=== PATIENT | female | born 1960 | race Caucasian/White ===

== ENCOUNTER 2021-06-14 07:09 | Outpatient (REF) | payer BC, SELFPAY ==
[2021-06-14 12:17] LABS: Alanine Aminotransferase 18 U/L (0-31); Anion Gap 11 (12-20); Aspartate Amino Transferase 19 U/L (5-31); Blood Urea Nitrogen 13 mg/dL (9-16); Calcium 9.5 mg/dL (8.4-10.2); Carbon Dioxide 26 mmol/L (22-29); Chloride 107 mmol/L (96-108); Cholesterol 235 mg/dL; Estimated Glomerular Filt Rate > 60; Glucose Fasting 88 mg/dL (60-99); HDL Cholesterol 72 mg/dL; LDL Cholesterol Calculated 131 mg/dl; Potassium 4.1 mmol/L (3.3-5.1); Sodium 140 mmol/L (135-145); Triglycerides 164 mg/dL
[2021-06-14 12:22] LABS: Vitamin D 25-OH Total 39.8 ng/mL (>30)
== END 2021-06-14 07:10 | disposition home or self-care (01) ==
LOC: HO.HMGCLDS 07:09
PROVIDERS: PCP Internal Medicine; Visit Provider Internal Medicine
DX: Z00.00 Encounter for general adult medical examination without abnormal findings (principal); E78.5 Hyperlipidemia, unspecified; I10 Essential (primary) hypertension; Z78.0 Asymptomatic menopausal state
CPT/HCPCS: 36415; 80048; 80061; 82306; 84450; 84460

== ENCOUNTER 2022-01-04 07:06 | Outpatient (REF) | payer BC, SELFPAY ==
[2022-01-04 11:38] LABS: Alanine Aminotransferase 17 U/L (0-31); Aspartate Amino Transferase 21 U/L (5-31); Cholesterol 217 mg/dL; HDL Cholesterol 62 mg/dL; LDL Cholesterol Calculated 132 mg/dl; Triglycerides 119 mg/dL
== END 2022-01-04 07:07 | disposition home or self-care (01) ==
LOC: HO.HMGCLDS 07:06
PROVIDERS: Visit Provider Internal Medicine
DX: E78.5 Hyperlipidemia, unspecified (principal)
CPT/HCPCS: 36415; 80061; 84450; 84460

== ENCOUNTER 2022-03-29 06:20 | Day surgery (SDC) | payer BC, SELFPAY ==
[2022-03-22 14:14] VITALS: BMI 27.3
[2022-03-29 06:47] VITALS: BP 144/72; PULSE 68; RESP 16; TEMP 36.2; O2SAT 99; BMI 26.6
[2022-03-29] MEDS: Lactated Ringers 1,000 ML 100 ML IVCONT (06:50)
--- NOTE | 2022-03-29 07:06 | HO.ANESPROP2 ---
[facility] Active Problems Active Problems: All Active Problems (Updated 06/23/21 @ 16:10 by Tiffani Nieto MD) Dyslipidemia (Acute) Generalized anxiety disorder (Acute) Past Medical History Medical History Dyslipidemia Generalized anxiety disorder Family History Family History (Updated 07/06/21 @ 01:07 by Tiffani Nieto MD) Father Coronary artery disease Mother Breast cancer, Onset Age: 55 Hypothyroidism Family history of problems with anesthesia: No Surgical History Surgical History History of cholecystectomy Hx of colonoscopy S/P trigger finger release History of Problems with Anesthesia: No Social History Social History Patient Tobacco Use Status: Never used Tobacco Use of substances other than those prescribed or required for medical reasons: No Are you DNR?: No Advance Directives: No Advance Directives Information Provided: Yes Patient : No (menopausal) Meds Allergies Allergy/AdvReac Type Severity Reaction Status Date / Time ampicillin Allergy Unknown Rash Verified 03/22/22 14:09 Sulfa (Sulfonamide Allergy Rash Verified 03/29/22 06:33 Antibiotics) Active Medications: Current Medications Sodium Biphosphate/Sodium Phosphate (Sodium Phosphate,[place]-Dibasic 133 Ml Enema) 133 ml PA ONCE PRN PRN Reason: Poor Colonoscopy Prep Results Home Medications Medication Instructions Recorded Confirmed Last Taken Type multivitamin 1 tab PO DAILY 06/23/21 03/22/22 Unknown History Exam Exam Date and Time: March 29, 2022 07 Height,Weight and Vital Signs: Height 5 ft 8 in Weight 79.379 kg Last Vital Signs Temp 97.2 F 03/29/22 06:47 Pulse 68 03/29/22 06:47 Resp 16 03/29/22 06:47 BP 144/72 H 03/29/22 06:47 Pulse Ox 99 03/29/22 06:47 O2 Del Method 03/29/22 06:47 Airway Mallampati Class: I TM Dist: >3cm Assessment and Plan Assessment Anesthesia Assessment: Anesthesia Plan Discussed and Chart Reviewed Final Anesthetic Review Family History of Problems with Anesthesia: No History of Problems with Anesthesia: No NPO: Yes ASA Class: II Final Preanesthetic Review: No Changes in Pt Med Stat, Meds/Allgs Chart Reviewed, Consent Obtained/Reviewed and Anes Risks/Benef Reviewed Patient Risk: Low Procedure Risk: Low Anesthetic Plan Anesthetic Plan: MAC: Disposition: Standard PACU
[2022-03-29 08:23] VITALS: BP 105/60; PULSE 69; RESP 16; TEMP 36.1; O2SAT 100
--- NOTE | 2022-03-29 08:28 | PM.OP ---
Brief Operative Note Date of Service: 03/29/22 Pre-op diagnosis: Screening Post-op diagnosis: other (Diverticulosis) Procedure: Colonoscopy to the cecum and TI Surgeon: Enoch Rosa Anesthesia: MAC Was an Instrument [employer] System used for this Procedure?: No Estimated blood loss (mL): 0 Pathology: none sent Condition: stable Disposition: PACU
[2022-03-29 08:38] VITALS: BP 105/51; PULSE 61; RESP 16; TEMP 36.1; O2SAT 99
--- NOTE | 2022-03-29 16:39 | OP_ITS ---
SURGEON: Enoch Rosa MD INDICATIONS: The patient presents for evaluation of colorectal cancer screening. Full consent was obtained from her for this, including risks of bleeding and perforation. PREOPERATIVE DIAGNOSIS: Colorectal cancer screening. POSTOPERATIVE DIAGNOSIS: PROCEDURE PERFORMED: Colonoscopy to cecum and terminal ileum. ESTIMATED BLOOD LOSS: COMPLICATIONS: ANESTHESIA: Monitored anesthesia care. ASSISTANTS: SPECIMENS: POSTOPERATIVE DIAGNOSES: Colorectal cancer screening, mild sigmoid diverticulosis, small internal hemorrhoids. DESCRIPTION OF PROCEDURE: The patient was placed in the left lateral decubitus position. The digital rectal exam revealed no abnormalities. The Olympus video pediatric colonoscope was entered into the rectum and advanced easily to the cecum. Once in the cecum, I did identify normal-appearing cecal pouch with appendiceal orifice and normal-appearing ileocecal valve. The terminal ileum was cannulated and appeared normal. The scope was withdrawn back in the colon. The entire cecum and ileocecal valve appeared normal. The scope was slowly withdrawn assessing all mucosal surfaces carefully. Preparation was excellent. I did not visualize any sign of polyps, colitis, nor angiodysplasia. There were occasional diverticula in the sigmoid colon. In the rectum, scope was retroflexed visualizing small internal hemorrhoids, but no other pathology. The rectal mucosa appeared normal. The scope was straightened and withdrawn from the patient. She tolerated the procedure well and was returned to recovery area in stable condition. IMPRESSION: 1. Mild sigmoid diverticulosis. 2. Small internal hemorrhoids. PLAN: Given the negative colonoscopy and negative family history, I would recommend a followup colonoscopy in 10 years for further screening. She will otherwise see me on a p.r.n. basis. MD MISTY Soliman/KEYONAL / [phone]
== END 2022-03-29 09:42 | disposition home or self-care (01) ==
PROVIDERS: PCP Internal Medicine; Visit Provider Internal Medicine
PROC: 0DJD8ZZ Inspection of Lower Intestinal Tract, Via Natural or Artificial Opening Endoscopic (ICD-10-PCS; CPT 45378; principal; 2022-03-29 07:30)
DX: Z12.11 Encounter for screening for malignant neoplasm of colon (principal); K57.30 Diverticulosis of large intestine without perforation or abscess without bleeding; K64.8 Other hemorrhoids; E78.00 Pure hypercholesterolemia, unspecified; F41.1 Generalized anxiety disorder; Z79.899 Other long term (current) drug therapy; Z88.2 Allergy status to sulfonamides; Z88.1 Allergy status to other antibiotic agents; Z90.49 Acquired absence of other specified parts of digestive tract
CPT/HCPCS: 45378

== ENCOUNTER 2023-12-04 08:02 | Outpatient (REF) | payer BC, SELFPAY ==
[2023-12-04 12:05] LABS: Alanine Aminotransferase 18 U/L (0-31); Anion Gap 11 (12-20); Aspartate Amino Transferase 17 U/L (5-31); Blood Urea Nitrogen 16 mg/dL (9-16); Calcium 9.4 mg/dL (8.4-10.2); Carbon Dioxide 27 mmol/L (22-29); Chloride 107 mmol/L (96-108); Cholesterol 245 mg/dL (<200); Estimated Glomerular Filt Rate > 60; Glucose Fasting 83 mg/dL (60-99); HDL Cholesterol 55 mg/dL (>40); LDL Cholesterol Calculated 146 mg/dL (<100); Sodium 141 mmol/L (135-145); Triglycerides 220 mg/dL (<150); Vitamin D 25-OH Total 53.2 ng/mL (>30)
== END 2023-12-04 08:03 | disposition home or self-care (01) ==
LOC: HO.HMGCLDS 08:02
PROVIDERS: PCP Internal Medicine; Visit Provider Internal Medicine
DX: Z00.01 Encounter for general adult medical examination with abnormal findings (principal); E78.5 Hyperlipidemia, unspecified; F41.1 Generalized anxiety disorder
CPT/HCPCS: 36415; 80048; 80061; 82306; 84450; 84460

== ENCOUNTER 2023-12-14 08:01 | Outpatient (AMB) | payer BC, SELFPAY ==
--- NOTE | 2023-12-14 08:05 | A.OFFPC_ITS ---
Vital Signs 12/14/23 08:07 Height 5 ft 8 in Weight 186 lb BMI 28.3 BP 138/82 Blood Pressure Location Lt brachial Position Sitting Pulse 88 Pulse Source Pulse Oximeter Pulse Oximetry (%) 99 Oxygen Delivery Method Room Air Intake Visit Reasons: PE Intake Note: * Pt is here today for her PE: Last mammogram 05/08/23, papsmear 01/12/21, colonoscopy 03/29/22 Allergies ampicillin Allergy (Unknown, Verified 12/14/23 08:15) Rash Sulfa (Sulfonamide Antibiotics) Allergy (Verified 12/14/23 08:15) Rash Medication List - Last Reconciled 12/14/23 by Tiffani iNeto MD multivitamin 1 tab PO DAILY sertraline 100 mg PO DAILY simvastatin 20 mg PO BEDTIME Tobacco use date assessed: 12/14/23 Dental Screening Dental Screen Date: 12/14/23 Did you have a dental visit in the last 12 months?: Yes Did you have a dental problem in the last 6 months where you did not have access to dental care?: Yes Was dental information given to patient?: Patient has dentist HPI PE HPI Details 63-year-old lady here today for physical exam. She sees Dr. Perea for her routine Pap and pelvic exam, up-to-date with screening mammogram done April 2023 at [facility], last Pap smear was done in 2020 which showed atrophic vaginal mucosa, and she is up-to-date with her screening colonoscopy done by Dr. Rosa in 2021 which only showed presence of internal hemorrhoids. She currently takes sertraline for her depression which is controlled on medication, and takes simvastatin 20 mg at bedtime for hyperlipidemia Latest fasting lipids however showed elevated triglycerides and LDL cholesterol as compared to last check. She has been compliant with taking her simvastatin but admits to noncompliance with diet or exercise these past few months since she retired Also been complaining of pain in her posterior neck and radiating to shoulders and upper back. This has been present now for the last 4 months. Has no history of any trauma but has been baby-sitting her 1-1/2-year-old grandchild. She has been taking ibuprofen, applying moist heat, tried [id number] icy hot patch and Salonpas patch which affords only temporary relief , she also tried massages which has not been helping. Pain nonradiating to lower back or arms, no accompanying numbness weakness or tingling sensation. PFSH Medical History Dyslipidemia Generalized anxiety disorder Surgical History History of cholecystectomy Hx of colonoscopy S/P trigger finger release Family History Father Coronary artery disease Mother Breast cancer, Onset Age: 55 Hypothyroidism Social History Housing: House Patient Tobacco Use Status: Never used Tobacco e-Cigarette/Vaping Use: Never Used service: No Current occupational status: retired Cognitive needs: No Hearing needs: No Vision needs: Yes Female Reproductive History Menstrual Other: Sees Dr. Perea for her routine Pap and pelvic exam, also orders her mammogram, which she gets at [facility] PHQ-9 Over the last 2 weeks, how often have you been bothered by any of the following problems? 1. Little interest or pleasure in doing things: not at all 2. Feeling down, depressed, or hopeless: not at all 3. Trouble falling or staying asleep, or sleeping too much: more than half the days 4. Feeling tired or having little energy: several days 5. Poor appetite or overeating: several days 6. Feeling bad about yourself - or that you are a failure or have let yourself or your family down: several days 7. Trouble concentrating on things, such as reading the newspaper or watching television: not at all 8. Moving or speaking so slowly that other people could have noticed. Or the opposite - being so fidgety or restless that you have been moving around a lot more than usual: not at all 9. Thoughts that you would be better off or of hurting yourself in some way: not at all Total score: 5 Depression Screening Interpretation: Negative (Depression controlled on sertraline) Depression Screening Done: Yes 49362 - PHQ-9 Billing: Yes Source: Developed by Drs. Enoch Duff, Alena Leonardo, Ar Kilgore and colleagues, with an educational lukas from [employer]. Thrive Questionnaire Date Thrive assessed: 12/14/23 I am a: Patient What is your living situation today?: I have a steady place to live Within the past 12 months, did the food you bought not last and you didn't have the money to get more?: Never true Within the past 12 months, did you worry whether your food would run out before you got money to buy more?: Never true Do you have trouble paying for medicines?: No Do you have trouble getting transportation to medical appointments?: No Do you have trouble paying your heating and electricity bill?: No Do you have trouble taking care of your child, family member or friend?: No Do you have trouble with day-to-day activities such as bathing, preparing meals, shopping, managing finances, etc.?: No Are you currently unemployed and looking for a job?: No Are you interested in more education?: No Please select the resources that you would like help with: None THRIVE Score: 0 AUDIT C Alcohol Use Questionnaire (AUDIT-C) 1. How often do you have a drink containing alcohol?: 2-4 times a month 2. How many drinks containing alcohol do you have on a typical day when you are drinking?: 1 or 2 3. How often do you have six or more drinks on one occasion?: Never Total Score: 2 ARELY-7 AMB Questionnaire ARELY-7 Date ARELY - 7 assessed: 12/14/23 Feeling nervous, anxious, or on edge: 1 = Several days Not being able to stop or control worryin = Not at all Worrying too much about different things: 1 = Several days Trouble relaxin = Several days Being so restless that it is hard to sit still: 0 = Not at all Becoming easily annoyed or irritable: 0 = Not at all Feeling afraid as if something awful might happen: 0 = Not at all Total ARELY-7 score (0-4 normal; 5-9 mild; 10-14 moderate; 15-21 severe): 3 Source: Developed by Drs. Enoch Duff, Alena Leonardo, Ar Kilgore and colleagues, with an educational lukas from [employer]. ARELY-7 Assessment Billing ARELY-7 Assessment Tool: ARELY-7 Assessment 06994 Review of Systems Const Denies fever(s), Denies headache(s) and Denies weakness Eyes Details: up-to-date with her eye exam goes to [facility] Denies change in vision, Denies eye discharge and Denies itchy eyes ENT Denies dizziness, Denies headache(s), Denies nasal congestion, Denies nasal discharge and Denies sore throat Card Denies chest pain, Denies lightheadedness, Denies palpitations and Denies dyspnea Resp Denies chest congestion, Denies cough, Denies dyspnea and Denies wheezing GI Denies abdominal pain, Denies change in bowel habits and Denies heartburn Denies urinary frequency, Denies dysuria and Denies urinary urgency Musc Reports as per HPI Skin/Breast Denies lesions and Denies rash Neuro Denies dizziness, Denies headache(s) and Denies weakness Psych Reports no additional complaints Endo Denies polydipsia, Denies polyuria and Denies palpitations Alvin/Lymph Denies easy bruising Aller/Immun Denies itchy eyes, Denies seasonal rhinorrhea and Denies wheezing Physical exam (Primary Care) Vital Signs: Last Vital Signs Pulse 88 12/14/23 08:07 BP 138/82 12/14/23 08:07 Pulse Ox 99 12/14/23 08:07 Oxygen Delivery Method Room Air 12/14/23 08:07 BMI result Body Mass Index 28.3 Tobacco/Smoking Status: Tobacco use Status Tobacco use date assessed 12/14/23 12/14/23 08:11 Patient Tobacco Use Status Never used Tobacco 12/14/23 08:11 e-Cigarette/Vaping Use Never Used 12/14/23 08:11 Depression Screening Interpretation: Negative (Depression controlled on sertraline) Thrive Assessment: Date of Thrive Assessment Date Thrive assessed 12/04/22 12/14/23 08:11 Const General: cooperative, comfortable and no acute distress Nutritional Appearance: average body habitus Orientation/consciousness: patient oriented x3 HENMT Head: Yes normocephalic and Yes atraumatic Ears: hearing grossly normal bilaterally, external ears normal, TM's normal bilaterally and EAC's normal General nose exam: Normal external nose present, Normal nasal mucous membranes and turbinates present and No nasal discharge present Mouth: Normal oral and palatal mucosa present, oropharynx normal and moist mucous membranes Throat: Yes posterior oropharynx normal Eyes General: appearance normal, both eyes and all related structures Conjunctivae: conjunctivae normal Pupils: Equal, round and reactive pupils present EOM: EOMs intact bilaterally Neck Other: Decreased range of motion on forward flexion, and lateral extension of neck due to pain and stiffness Neck: Yes no lymphadenopathy and Yes supple Chest Other: Patient declined exam states that she has an appointment with her OBGYN who also does breast exams Resp Effort & Inspection: normal respiratory effort and able to speak in complete sentences Auscultation: clear to auscultation bilaterally Cardio Jugular venous distension: no JVD Rate: regular rate Rhythm: regular rhythm Heart sounds: S1 normal heart sound present and S2 normal heart sound present GI Inspection: Yes normal to inspection Palpation (GI): Soft to palpation, nontender and no masses Auscultation: normal bowel sounds General: Yes deferred (has appt with her OB-OLD TESTAMENT PROFESSOR later this year) Back/Spine/Pelvis Other: Tenderness on palpation over paraspinal muscles on cervical area and over bilateral trapezius Thoracic/Lumbar Spine: thoracic and lumbar spine normal to inspection Skin General skin exam: no rashes or lesions noted Neuro General: patient oriented x3, gait normal, tone normal, moves all extremities, Normal light touch and pain sensation and no focal motor deficits Cranial nerves: Yes Equal, round and reactive pupils present Cognition (Neuro): normal cognition Gait exam (Neuro): Normal gait present Motor exam (neuro): 5/5 motor strength present throughout Extrem General: Yes full ROM, Yes no joint enlargement, Yes no pedal edema, Yes no calf tenderness and Yes normal gait Psych Appearance: grossly normal Mental Status: mental status grossly normal Speech and movement: Normal speech and movement present Affect: normal affect Attitude: cooperative Thought process: Normal thought process present Thought content: Normal thought content present Results Reviewed Results Reviewed: Name: Claudia Alatorre Age/Sex: 63/F : 1960 Unit#: [id number] Attend Dr: Tiffani Nieto MD Re12/04/23 Status: DEP [facility] Disch: SPEC : [id number] TOVA: 12/04/23 STATUS: COMP REQ : [id number] RECD: 12/04/23-[address]: Tiffani Nieto MD COMP: 12/04/23-1205 ENTERED: 12/04/23 DEIDRE CRISOSTOMO: ORDERED: Met Prof Fast, AST, ALT, Lipid Panel, Vitamin D 25-OH Test Result Flag Reference Sodium 141 135-145 mmol/L Potassium 4.0 3.3-5.1 mmol/L CL 107 96-108 mmol/L CO2 27 22-29 mmol/L Gap 11 L 12-20 BUN 16 9-16 mg/dL Creat 0.79 0.5-1.4 mg/dL EGFR > 60 NOTE: For -[place] individuals, multiply the result by 1.210. Chronic Kidney Disease: Estimated GFR < 60 mL/min/1.73m2 Severe Kidney Disease: Estimated GFR < 15 mL/min/1.73m2 FBS 83 60-99 mg/dL CA 9.4 8.4-10.2 mg/dL AST (GOT) 17 5-31 U/L ALT (GPT) 18 0-31 U/L Triglyceride 220 H <150 mg/dL Desirable Triglyceride: less than 150 mg/dL Borderline High Triglyceride 150-199 mg/dL High Triglyceride: 200-499 mg/dL Very High Triglyceride: greater than or equal to 5OO mg/dL Cholesterol 245 H <200 mg/dL Desirable Cholesterol: less than 200 mg/dL Borderline High Cholesterol: 200-239 mg/dL High Cholesterol: greater than 239 mg/dL LDL Calculated 146 H <100 mg/dL Desirable LDL: less than 100 mg/dL Near Optimal/Above Optimal LDL: 110-129 mg/dL Borderline High LDL: 130-159 mg/dL High LDL: 160-189 mg/dL Very High LDL: greater than or equal to 190 mg/dL HDL 55 >40 mg/dL Desirable HDL: greater than 40 mg/dL Note: This HDL assay may give artificially low results in patients with liver disease. Vit D 25-OH Tot 53.2 >30 ng/mL Health Based Reference Values* < 20 ng/mL Deficient 20-30 ng/mL Insufficient > 30 ng/mL Sufficient Assessment and Plan Assessment & Plan (1) Annual visit for general adult medical examination with abnormal findings: Code(s): Z00.01 - Encounter for general adult medical examination with abnormal findings Plan: Reviewed recent fasting lab results with patient which showed results within normal limits except for elevated LDL cholesterol and triglyceride. Continue with regular dental visit every 6 months and regular eye exams, at least every 2 years, currently up to. Take adequate calcium in diet and vitamin-D 3 at 2000 IU per cap once a day, in addition to weight-bearing exercises to help maintain good muscle tone and weight control. Instructed to do self-breast exam, and continue with yearly mammogram, ordered by her OBGYN, Dr. Perea. Recommended also to get a bone density scan to be scheduled together with her screening mammogram at [facility]. Patient states that she had 1 several years ago which showed normal bone density. Up-to-date with her cervical cancer screening, sees Dr. Perea and has another appointment scheduled later this month. Has had COVID vaccinations in the past but does not want to get the booster, reminded to get her yearly flu shot, up-to-date with her Shingrix vaccination and Tdap. Recommended also to get RSV vaccine. She is up-to-date with her screening colonoscopy done in [address] Rosa to be repeated again in 10 years. (2) Cervicalgia: Code(s): M54.2 - Cervicalgia Plan: Ordered a cervical spine x-ray, referred for physical therapy. May continue taking ibuprofen and advised to alternate it with Tylenol arthritis 650 mg per tablet may take 1-2 tablets every 12 hours in between ibuprofen. Prescription sent for tizanidine 4 mg per tablet to take 1 tablet at bedtime as needed for painful muscle spasm. Advised to call if no improvement with physical therapy a nd will order an MRI of cervical spine for further evaluation if needed (3) Dyslipidemia: Code(s): E78.5 - Hyperlipidemia, unspecified Plan: Reviewed recent fasting lipid profile with patient with elevated triglycerides and LDL cholesterol on simvastatin 20 mg daily. Will stop simvastatin and switched to rosuvastatin 5 mg per tablet taken once a day . Continue with adherence to low-cholesterol diet and regular exercise, at least 30 minutes 3 to 4 times a week. Advised patient to make healthy food choices, eat more fruits, vegetables, whole grains, wild caught fish and low-fat dairy. Limit amount of meat and fried or fatty food products, as well as processed foods and fast fo ods. Follow-up scheduled with repeat fasting lipid panel in 3 months. Orders: Orders PT Evaluation and Treatment Today M54.2 - Cervicalgia Lipid Panel 02/23/24 E78.5 - Hyperlipidemia, unspecified Alanine Aminotransferase 02/23/24 E78.5 - Hyperlipidemia, unspecified XR cervical spine min 6V Today M54.2 - Cervicalgia Creatine Kinase Total 02/23/24 E78.5 - Hyperlipidemia, unspecified Aspartate Amino Transferase 02/23/24 E78.5 - Hyperlipidemia, unspecified Medications: New rosuvastatin 5 mg PO DAILY 90 tabs 1RF E78.5 - Hyperlipidemia, unspecified tizanidine 4 mg PO BEDTIME PRN 30 tabs 0RF muscle spasticity Discontinued simvastatin Discontinued Reason: Doctor's Order 20 mg PO BEDTIME 90 tabs 3RF Coding Level of Care Code Est Pt Prev Care 40-64y(07684) Diagnoses Annual visit for general adult medical examination with abnormal findings Z00.01 Cervicalgia M54.2 Dyslipidemia E78.5 Additional Codes ARELY-7 Assessment Billing - ARELY-7 Assessment Tool: ARELY-7 Assessment 45822 ([id number])
[2023-12-14 08:07] VITALS: BP 138/82; PULSE 88; O2SAT 99; BMI 28.3
== END 2023-12-14 08:36 | disposition home or self-care (01) ==
PROVIDERS: Visit Provider Internal Medicine
DX: Z00.01 Encounter for general adult medical examination with abnormal findings (principal); M54.2 Cervicalgia; E78.5 Hyperlipidemia, unspecified
CPT/HCPCS: 99213; 99396

== ENCOUNTER 2023-12-14 08:37 | Outpatient (REF) | payer BC, SELFPAY ==
--- NOTE | ~2023-12-14 | XR_ITS ---
EXAMINATION: XR CERVICAL SPINE CLINICAL INFORMATION: Neck pain COMPARISON: None available. TECHNIQUE: 3 views of the cervical spine were obtained. FINDINGS: Prevertebral soft tissues normal. There is mild narrowing at the C6-C7 level. No fracture or destructive lesion. There is mild encroachment on the left C5-C6 neural foramen. XR/XR cervical spine 4V IMPRESSION: Degenerative change noted. No acute findings.
== END 2023-12-14 08:38 | disposition home or self-care (01) ==
LOC: HO.HMGCX 08:37
PROVIDERS: PCP Internal Medicine; Visit Provider Internal Medicine
DX: M54.2 Cervicalgia (principal)
CPT/HCPCS: 72050

== ENCOUNTER 2024-02-29 07:38 | Outpatient (REF) | payer BC, SELFPAY ==
[2024-02-29 11:03] LABS: Alanine Aminotransferase 18 U/L (0-31); Aspartate Amino Transferase 18 U/L (5-31); Cholesterol 224 mg/dL (<200); HDL Cholesterol 55 mg/dL (>40); LDL Cholesterol Calculated 122 mg/dL (<100); Triglycerides 237 mg/dL (<150)
== END 2024-02-29 07:39 | disposition home or self-care (01) ==
LOC: HO.HMGCLDS 07:38
PROVIDERS: PCP Internal Medicine; Visit Provider Internal Medicine
DX: E78.5 Hyperlipidemia, unspecified (principal)
CPT/HCPCS: 36415; 80061; 82550; 84450; 84460

== ENCOUNTER 2024-03-07 08:00 | Outpatient (RCR) | payer BC, SELFPAY ==
--- NOTE | 2024-01-18 09:22 | MHC.PT.EP ---
[facility] [place] Office [place] Office [place] Office [address] Tarik Palma [address] [phone] F: [phone] F: [phone] F: [phone] F: [phone] Physical Therapy Plan of Care Date of Evaluation: 01/18/24 Date of Surgery: Diagnosis: This is a 63 yo female presenting to skilled PT with a script for cervicalgia. Assessment: This is a 63 yo female presenting to skilled PT with a script for cervicalgia. Patient complaining of neck pain presenting for about 3-4 months now, no injury noted. Pain is at the posterior c-spine and radiates to the UT's and upper back. She has been taking ibuprofen, applying moist heat, muscle relaxers, ice, tried [id number] icy hot patch and Salonpas patch with only temporary relief. She also tried massage which has not been helping. She has had VILLEGAS's all her life but now they are everyday (gnosticist area and posterior head). Pain is located central at the occiput and radiates into the UT's (denies radiating symptoms into the UE's however). Pain is described as dull and throbbing but can be sharp at times. Pain is consistent, increases with turning her head to the R. Assessment reveals pain that ranges from up to a 7/10 at the worst. Patient demos decreased L shoulder and cervical ROM, strength of B shoulder's and c-spine, TTP at UT's and impaired posture with forward head and rounded shoulders. Based on functional limitations, impaired QOL and pain tolerance patient is a good candidate for skilled PT 2x/wk for 4wks. Frequency and Duration: The patient will be seen 2x/wk for 4wks Short Term Goals: (in 2 wks) I in HEP Improve cervical ROM by at least 25% Demo proper cervical positioning with progression of UB strengthening exercises without cues from PT Health Technical Writer Goals: (in 4 wks) Report 50% improvement in QOL Tolerate sleeping through the night without waking from pain Improve NDI by 10 points Improve pain to no more than 2/10 at the worst Demo proper lifting and transfering techniques for babysitting Treatment Plan: Modalities to reduce pain, spasms and effusion. Manual therapy to restore motion and function. Therapeutic exercise to improve strength and flexibility. Neuromuscular re-education for posture and balance. Therapeutic activities to return to functional activities of daily living. Electronically signed by: Catina Romero PT Please sign and return to therapist. Thank you for your referral.
--- NOTE | 2024-03-07 09:05 | MHC.PT.DC ---
[facility] [place] Office [place] Office [place] Office [address] Tarik Palma [address] [phone] F: [phone] F: [phone] F: [phone] F: [phone] Physical Therapy Discharge Report Diagnosis: This is a 63 yo female presenting to skilled PT with a script for cervicalgia. Date of Surgery: Date of Evaluation: 01/18/24 Date of Discharge: 03/07/24 Treatments to Date: 8 Cancellations to Date: 0 No Shows to Date: 0 Discharge Status: Patient Elected to Stop Recommend MD Follow-up Discharge Summary: Patient has come to 8 sessions of PT. She continues to have VILLEGAS's, muscle stiffness and limited mobility. She demos similar cervical ROM from eval but shoulder strength has improved. As she has not made much progress I am referring her back to her PCP to talk about ? higher level imaging and additional referrals for ongoing VILLEGAS's and cervical limitations. Electronically signed by: Catina Romero, PT Please sign and return to therapist. Thank you for your referral.
== END 2024-03-07 09:05 | disposition home or self-care (01) ==
LOC: HO.PTCHIC 08:00
PROVIDERS: PCP Internal Medicine; Visit Provider Internal Medicine
DX: M54.2 Cervicalgia (principal)
CPT/HCPCS: 97110; 97140; 97162; 97164

== ENCOUNTER 2024-03-14 09:00 | Outpatient (AMB) | payer BC, SELFPAY ==
--- NOTE | 2024-03-14 08:58 | A.OFFPC_ITS ---
Intake Visit Reasons: f/u labs Andriod [phone] Intake Note: Pt is having a telehealth visit to f/u labs Allergies ampicillin Allergy (Unknown, Verified 03/14/24 09:09) Rash Sulfa (Sulfonamide Antibiotics) Allergy (Verified 03/14/24 09:09) Rash Medication List - Last Reconciled 03/14/24 by Tiffani Nieto MD multivitamin 1 tab PO DAILY rosuvastatin 5 mg PO DAILY sertraline 100 mg PO DAILY Tobacco use date assessed: 12/26/23 Dental Screening Dental Screen Date: 03/14/24 Did you have a dental visit in the last 12 months?: Yes Did you have a dental problem in the last 6 months where you did not have access to dental care?: Yes Was dental information given to patient?: Patient has dentist HPI f/u labs Andriod [phone] HPI Details 63-year-old lady with mixed dyslipidemia , here today for follow-up. She has been taking her rosuvastatin daily 5 mg once a day, but has not been very faithful to a low-cholesterol diet, has been snacking on chips, potato chips and beta good. And has not been exercising regularly. Her fasting lipids however showed improvement in her LDL cholesterol, but triglycerides still remain elevated. Still complaining of posterior neck pain, free of cervical spine showed degenerative changes , not much improvement after 6 weeks of physical therapy. Has been taking ibuprofen and applying ice and heat to affected area which affords only temporary relief. Denies any radiation of pain down arms, no accompanying weakness, no numbness or tingling in extremities noted. Takes sertraline for her generalized anxiety disorder, which has been helping. [facility] Medical History (Updated 03/14/24 @ 09:39 by Tiffani Nieto MD) Mixed dyslipidemia Degenerative disc disease, cervical Generalized anxiety disorder Surgical History S/P trigger finger release Hx of colonoscopy History of cholecystectomy Family History Father Coronary artery disease Mother Breast cancer, Onset Age: 55 Hypothyroidism Social History Housing: House Patient Tobacco Use Status: Never used Tobacco e-Cigarette/Vaping Use: Never Used service: No Current occupational status: retired Cognitive needs: No Hearing needs: No Vision needs: Yes Questionnaire Thrive Questionnaire Date Thrive assessed: 12/14/23 ARELY-7 AMB Questionnaire ARELY-7 Date ARELY - 7 assessed: 03/14/24 Feeling nervous, anxious, or on edge: 1 = Several days Not being able to stop or control worryin = Not at all Worrying too much about different things: 1 = Several days Trouble relaxin = Not at all Being so restless that it is hard to sit still: 0 = Not at all Becoming easily annoyed or irritable: 0 = Not at all Feeling afraid as if something awful might happen: 0 = Not at all Total ARELY-7 score (0-4 normal; 5-9 mild; 10-14 moderate; 15-21 severe): 2 Source: Developed by Drs. Enoch Duff, Alena Leonardo, Ar Kilgore and colleagues, with an educational lukas from [employer]. ARELY-7 Assessment Billing ARELY-7 Assessment Tool: ARELY-7 Assessment 73035 Review of Systems Const Denies headache(s) and Denies weakness Eyes Details: up-to-date with her eye exam goes to [facility] Denies change in vision ENT Denies dizziness, Denies headache(s) and Denies nasal congestion Card Denies chest pain, Denies lightheadedness, Denies palpitations and Denies dyspnea Resp Denies chest congestion, Denies cough, Denies dyspnea and Denies wheezing GI Denies abdominal pain, Denies change in bowel habits and Denies heartburn Denies urinary frequency, Denies dysuria and Denies urinary urgency Musc Reports as per HPI Skin/Breast Denies lesions and Denies rash Neuro Denies dizziness, Denies headache(s) and Denies weakness Psych Reports no additional complaints and Reports as per HPI Endo Denies polydipsia, Denies polyuria and Denies palpitations Alvin/Lymph Denies easy bruising Aller/Immun Denies seasonal rhinorrhea and Denies wheezing Physical exam (Primary Care) Tobacco/Smoking Status: Tobacco use Status Tobacco use date assessed 12/26/23 03/14/24 09:00 Patient Tobacco Use Status Never used Tobacco 03/14/24 09:00 e-Cigarette/Vaping Use Never Used 03/14/24 09:00 Thrive Assessment: Date of Thrive Assessment Date Thrive assessed 12/14/23 03/14/24 09:00 Results Reviewed Results Reviewed: Name: Claudia Alatorre Age/Sex: 63/F : 1960 Unit#: [id number] Attend Dr: Tiffain Nieto MD Re02/29/24 Status: DEP [facility] Disch: SPEC : [id number] TOVA: 02/29/24 STATUS: COMP REQ : [id number] RECD: 02/29/[address]: Tiffani Nieto MD COMP: 02/29/24 ENTERED: 02/29/[address]: ORDERED: AST, ALT, CK Total, Lipid Panel Test Result Flag Reference AST (GOT) 18 5-31 U/L ALT (GPT) 18 0-31 U/L CK Total 91 26-140 U/L Triglyceride 237 H <150 mg/dL Desirable Triglyceride: less than 150 mg/dL Borderline High Triglyceride 150-199 mg/dL High Triglyceride: 200-499 mg/dL Very High Triglyceride: greater than or equal to 5OO mg/dL Cholesterol 224 H <200 mg/dL Desirable Cholesterol: less than 200 mg/dL Borderline High Cholesterol: 200-239 mg/dL High Cholesterol: greater than 239 mg/dL LDL Calculated 122 H <100 mg/dL Desirable LDL: less than 100 mg/dL Near Optimal/Above Optimal LDL: 110-129 mg/dL Borderline High LDL: 130-159 mg/dL High LDL: 160-189 mg/dL Very High LDL: greater than or equal to 190 mg/dL HDL 55 >40 mg/dL Desirable HDL: greater than 40 mg/dL Note: This HDL assay may give artificially low results in patients with liver disease. Assessment and Plan Assessment & Plan (1) Mixed dyslipidemia: Code(s): E78.2 - Mixed hyperlipidemia Plan: Reviewed recent fasting lipid profile with patient with improvement in her LDL cholesterol, but triglycerides remain elevated.. Continue rosuvastatin 5 mg daily, and advised to take cxcs-oxl-ycdowyh [place] 3 fatty acid supplements at least 2 capsules daily , in addition to adherence to low-cholesterol diet and regular exercise, at least 30 minutes 3 to 4 times a week. Advised patient to make healthy food choices, eat more fruits, vegetables, whole grains, wild caught fish and low-fat dairy. Limit amount of meat and fried or fatty food products, as well as processed foods and fast foods. Follow-up scheduled with repeat fasting lipid panel in 4 months after fasting lipids done (2) Degenerative disc disease, cervical: Code(s): M50.30 - Other cervical disc degeneration, unspecified cervical region Plan: Stop ibuprofen, prescription sent for celecoxib 200 mg per capsule to take once a day, may take an extra Tylenol arthritis 650 mg twice a day as needed for pain. Continue doing neck exercises taught at physical therapy. As well as applying alternating ice or heat to affected area. Follow-up in 4 months (3) Generalized anxiety disorder: Code(s): F41.1 - Generalized anxiety disorder Plan: Stable and controlled on sertraline, will continue with same dose 100 mg once a day Orders: Orders Alanine Aminotransferase 06/15/24 E78.5 - Hyperlipidemia, unspecified, Z78.0 - Asymptomatic menopausal state Lipid Panel 06/15/24 E78.5 - Hyperlipidemia, unspecified, Z78.0 - Asymptomatic menopausal state Aspartate Amino Transferase 06/15/24 E78.5 - Hyperlipidemia, unspecified, Z78.0 - Asymptomatic menopausal state Vitamin D 25-OH Total 06/15/24 E78.5 - Hyperlipidemia, unspecified, Z78.0 - Asymptomatic menopausal state Medications: New celecoxib 200 mg PO DAILY PRN 30 caps 3RF neck pain Refilled rosuvastatin 5 mg PO DAILY 90 tabs 1RF E78.5 - Hyperlipidemia, unspecified Coding Level of Care Code Tele Est Pt Level 4 (17142) Complex EM visit Add On G2211 Diagnoses Mixed dyslipidemia E78.2 Degenerative disc disease, cervical M50.30 Generalized anxiety disorder F41.1 Additional Codes ARELY-7 Assessment Billing - ARELY-7 Assessment Tool: ARELY-7 Assessment 64461 ([id number])
== END 2024-03-14 14:29 | disposition home or self-care (01) ==
LOC: HO.HMGC 09:00
PROVIDERS: PCP Internal Medicine; Visit Provider Internal Medicine
DX: E78.2 Mixed hyperlipidemia (principal); M50.30 Other cervical disc degeneration, unspecified cervical region; F41.1 Generalized anxiety disorder
CPT/HCPCS: 99214

== ENCOUNTER 2024-07-01 08:49 | Outpatient (REF) | payer BC, SELFPAY ==
[2024-07-01 10:29] LABS: Alanine Aminotransferase 16 U/L (0-31); Aspartate Amino Transferase 17 U/L (5-31); Cholesterol 233 mg/dL (<200); HDL Cholesterol 55 mg/dL (>40); LDL Cholesterol Calculated 127 mg/dL (<100); Triglycerides 255 mg/dL (<150)
[2024-07-01 10:46] LABS: Vitamin D 25-OH Total 34.1 ng/mL (>30)
== END 2024-07-01 08:50 | disposition home or self-care (01) ==
LOC: HO.HMGCLDS 08:49
PROVIDERS: PCP Internal Medicine; Visit Provider Internal Medicine
DX: E78.5 Hyperlipidemia, unspecified (principal); Z78.0 Asymptomatic menopausal state
CPT/HCPCS: 36415; 80061; 82306; 84450; 84460

== ENCOUNTER 2024-07-18 08:52 | Outpatient (AMB) | payer BC, SELFPAY ==
--- NOTE | 2024-07-18 08:50 | A.OFFPC_ITS ---
Intake Visit Reasons: Med Review Follow Up Intake Note: Pt is having a telehealth visit for her lipids results Allergies ampicillin Allergy (Unknown, Verified 07/18/24 09:19) Rash Sulfa (Sulfonamide Antibiotics) Allergy (Verified 07/18/24 09:19) Rash Medication List - Last Reconciled 07/18/24 by Tiffani Nieto MD multivitamin 1 tab PO DAILY rosuvastatin 5 mg PO DAILY sertraline 100 mg PO DAILY Tobacco use date assessed: 07/18/24 Dental Screening Dental Screen Date: 07/18/24 Did you have a dental visit in the last 12 months?: Yes Did you have a dental problem in the last 6 months where you did not have access to dental care?: Yes Was dental information given to patient?: Patient has dentist HPI Med Review Follow Up HPI Details 63-year-old lady with mixed dyslipidemia , here today for a telehealth follow-up visit. She has been adhering to a low-cholesterol diet has been exercising regularly, and taking her rosuvastatin 5 mg once a day. Recent fasting labs showed LDL cholesterol at goal but still with elevated triglycerides . [facility] Medical History Mixed dyslipidemia Degenerative disc disease, cervical Generalized anxiety disorder Surgical History S/P trigger finger release Hx of colonoscopy History of cholecystectomy Family History Father Coronary artery disease Mother Breast cancer, Onset Age: 55 Hypothyroidism Social History Housing: House Patient Tobacco Use Status: Never used Tobacco e-Cigarette/Vaping Use: Never Used service: No Current occupational status: retired Cognitive needs: No Hearing needs: No Vision needs: Yes Questionnaire Thrive Questionnaire Date Thrive assessed: 12/14/23 ARELY-7 AMB Questionnaire ARELY-7 Date ARELY - 7 assessed: 03/14/24 Source: Developed by Drs. Enoch Duff, Alena Leonardo, Ar Kilgore and colleagues, with an educational lukas from [employer]. Review of Systems Const Denies headache(s) and Denies weakness Eyes Denies change in vision ENT Denies dizziness, Denies headache(s) and Denies nasal congestion Card Denies chest pain, Denies lightheadedness, Denies palpitations and Denies dyspnea Resp Denies chest congestion, Denies cough, Denies dyspnea and Denies wheezing GI Denies abdominal pain, Denies change in bowel habits and Denies heartburn Denies urinary frequency, Denies dysuria and Denies urinary urgency Musc Reports as per HPI Skin/Breast Denies lesions and Denies rash Neuro Denies dizziness, Denies headache(s) and Denies weakness Psych Reports no additional complaints Endo Denies polydipsia, Denies polyuria and Denies palpitations Aller/Immun Denies seasonal rhinorrhea and Denies wheezing Physical exam (Primary Care) Tobacco/Smoking Status: Tobacco use Status Tobacco use date assessed 07/18/24 07/18/24 08:51 Patient Tobacco Use Status Never used Tobacco 07/18/24 08:51 e-Cigarette/Vaping Use Never Used 07/18/24 08:51 Thrive Assessment: Date of Thrive Assessment Date Thrive assessed 12/14/23 07/18/24 08:51 Telehealth Telehealth Telehealth Platform: [facility] Location of provider rendering services: practice address Location of patient: address on file Patient Identification confirmed using: Name, : Yes Telehealth method: video Patient verbally consented to treatment: Yes Patient verbally consented to billing insurance company: Yes Patient informed of any privacy concerns related to visit: Yes Minutes spent on Phone/Video with Pt.: 15 Results Reviewed Results Reviewed: Name: Claudia Alatorre Age/Sex: 63/F : 1960 Unit#: [id number] Attend Dr: Tiffani Nieto MD Re07/01/24 Status: DEP [facility]: SPEC : [id number] TOVA: 07/01/24 STATUS: COMP REQ : [id number] RECD: 07/01/[address]: Tiffani Nieto MD COMP: 07/01/24 ENTERED: 07/01/[address]: ORDERED: AST, ALT, Lipid Panel, Vitamin D 25-OH Test Result Flag Reference AST (GOT) 17 5-31 U/L ALT (GPT) 16 0-31 U/L Triglyceride 255 H <150 mg/dL Desirable Triglyceride: less than 150 mg/dL Borderline High Triglyceride 150-199 mg/dL High Triglyceride: 200-499 mg/dL Very High Triglyceride: greater than or equal to 5OO mg/dL Cholesterol 233 H <200 mg/dL Desirable Cholesterol: less than 200 mg/dL Borderline High Cholesterol: 200-239 mg/dL High Cholesterol: greater than 239 mg/dL LDL Calculated 127 H <100 mg/dL Desirable LDL: less than 100 mg/dL Near Optimal/Above Optimal LDL: 110-129 mg/dL Borderline High LDL: 130-159 mg/dL High LDL: 160-189 mg/dL Very High LDL: greater than or equal to 190 mg/dL HDL 55 >40 mg/dL Desirable HDL: greater than 40 mg/dL Note: This HDL assay may give artificially low results in patients with liver disease. Vit D 25-OH Tot 34.1 >30 ng/mL Health Based Reference Values* < 20 ng/mL Deficient 20-30 ng/mL Insufficient > 30 ng/mL Sufficient Coding Level of Care Code Est Pt Level 3 (63476) Complex EM visit Add On G2211 Diagnoses Mixed dyslipidemia E78.2 Assessment & Plan Assessment & Plan (1) Mixed dyslipidemia: Code(s): E78.2 - Mixed hyperlipidemia Category: Medical Plan: Discuss recent fasting lipid results with patient, will continue on rosuvastatin 5 mg daily, added Lovaza 2 capsules twice a day. Continue with adherence to healthy eating habits and regular exercise. Will repeat another fasting lipid panel in 12/2024 Orders: Orders Alanine Aminotransferase 12/23/24 E78.2 - Mixed hyperlipidemia, Z13.1 - Encounter for screening for diabetes mellitus, Z78.0 - Asymptomatic menopausal state Vitamin D 25-OH Total 12/23/24 E78.2 - Mixed hyperlipidemia, Z13.1 - Encounter for screening for diabetes mellitus, Z78.0 - Asymptomatic menopausal state Lipid Panel 12/23/24 E78.2 - Mixed hyperlipidemia, Z13.1 - Encounter for screening for diabetes mellitus, Z78.0 - Asymptomatic menopausal state Aspartate Amino Transferase 12/23/24 E78.2 - Mixed hyperlipidemia, Z13.1 - Encounter for screening for diabetes mellitus, Z78.0 - Asymptomatic menopausal state Glucose Fasting 12/23/24 E78.2 - Mixed hyperlipidemia, Z13.1 - Encounter for screening for diabetes mellitus, Z78.0 - Asymptomatic menopausal state Medications: New omega-3 acid ethyl esters (Lovaza) 2 caps PO BID 120 caps 5RF 30 days
== END 2024-07-18 11:20 | disposition home or self-care (01) ==
PROVIDERS: PCP Internal Medicine; Visit Provider Internal Medicine
DX: E78.2 Mixed hyperlipidemia (principal)

== ENCOUNTER → 2024-07-18 08:52 | Outpatient (BNVA) | payer BC, SELFPAY | PROVIDERS: PCP Internal Medicine; Visit Provider Internal Medicine ==

== ENCOUNTER 2024-11-10 09:04 | Outpatient (AMB) | payer MEDICARE, BC, SELFPAY ==
--- OUTSIDE RECORDS SUMMARY | 2024-11-10 09:07 | XMS_ITS | Patient Health Record ---
Author Organization [facility] Address [address] [place] [address] Care Team Providers Care Application Defense Manager Name Role Phone Gerson MURPHY, Tiffani Primary Care Provider Enoch Betancur Unavailable [phone] ALLERGIES Allergen (clinical drug ingredient) Drug/Non Drug Allergy documented on EMR Reaction Allergy Type Onset Date Status Penicillin Unknown Drug Allergy Active Substance with sulfonamide structure and antibacterial mechanism of action (substance) Sulfa Antibiotics Unknown Drug Allergy Active REASON FOR REFERRAL No Information MEDICATIONS Medication SIG (Take, Route, Fr equency, Duration) Notes Start Date End Date Status One Daily - 1 tablet Orally Once a day for 30 day(s) Active Simvastatin 20 MG 1 tablet in the even ing Orally Once a day for 30 day(s) Active Sertraline HCl 100 MG 1 tablet Orally On ce a day for 30 day(s) Active IMMUNIZATIONS Vaccine Route Administration Date Status Comme nts Influenza Unknown 07/13/2021 Administered SOCIAL HISTORY Tobacco Use: Social History Observation Description Date Details (start date - stop date) Never Smoker NA - NA Sex Assigned At : Social History Observation Description Sex Assigned At Unknown Tobacco Use/Smoking Question Answer Notes Patient is a nonsmoker Alcohol Screen Question Answer Notes Did you have a drink contain ing alcohol in the past year? Yes How often did you have a dri nk containing alcohol in the past year? Monthly or less (1 point) How many drinks did you have on a typical day when you were drinking in the past year? 1 or 2 drinks (0 point) How often did you have 6 or more drinks on one occasion in the past year? Never (0 point) Points 1 Interpretation Negative PROBLEMS Problem Type ICD Code Onset Dates Problem Status W/U Status Risk SNOMED Code Notes Problem Encounter for screening for malignant neoplasm of colon (Z12.11) Active confirmed 769732318 Problem Preprocedural examination (Z01.818) Active confirmed [id number] Problem Diverticulosis of colon (K57.30) Active confirmed Diverticulosi s of colon (424074731) PLAN OF TREATMENT Future Test Test Name Order Date COLONOSCOPY 12/28/2021 Insurance Providers Payer Name Payer Address Payer Phone Subscriber Number Group Number Insured Name Patient Relationship to Insured Coverage Start Date Coverage End Date [facility] [address] [place] [address] [phone] [id number] EMILY ALEXANDRE Self - patient is the insured MEDICAL (GENERAL) HISTORY Medical History History ICD Code High cholesterol Mild anxiety/depression Negative colonoscopy in 2009 Denies LA,DM,CVA,Lung disease,renal dise ase Surgical History Surgery Date(Month/Year) CCY 2005
--- OUTSIDE RECORDS SUMMARY | 2024-11-10 09:07 | XMS_ITS ---
Author Organization [employer] [facility] Address [address] [place] [address] Care Team Providers Care Wrapper Off Name Role Phone LISETTE MURPHY, RYANN Primary Care Provider Lindy Hong Unavailable [phone] Allergies Allergen (clinical drug ingredient) Drug/Non Drug Allergy documented on EMR Reaction Allergy Type Onset Date Status Penicillin Skin Rash/Itching Drug Allergy Active Substance with sulfonamide structure and antibacterial mechanism of action (substance) Sulfa Antibiotics Skin Rash/Itching Drug Allergy Active Results Component Value Reference Range Notes Urinalysis Reviewed date:02/07/2024 09:43:52 AM Interpretation: Performing Lab: Notes/Report: PH 6.0 PROTEIN NEG GLUCOSE NEG BLOOD NEG [id number] IGP No Culture 30 Plus Reviewed date:02/12/2024 04:14:18 PM Interpretation: Performing Lab:[facility] [place], [facility] [address], [address], [place], Phone - [phone], Director - [facility] Notes/Report: Clinical Information:[id number] Dates / Results....01/12/21 NIL, NEGHPV No. of containers..01 ThinPrep Vial DIAGNOSIS: NEGATIVE FOR INTRAEPITHELIAL LESION OR MALIGNANCY. CELLULAR CHANGES ASSOCIATED WITH ATROPHY ARE PRESENT. Specimen adequacy: Satisfactory for evaluation. Endocervical component may not be distinguished in cases of atrophy. Clinician provided ICD10: Z0 1.419 Performed by: Ivy self, Flute Polisher (ASCP) . . Note: The Pap smear is a screening test designed to aid in the detection of premalignant and malignant conditions of the uterine cervix. It is not a diagnostic procedure and should not be used as the sole means of detecting cervical cancer. Both false-positive and false-negative reports do occur. . Test Methodology: This liquid based ThinPrep(R) pap test was screened with the use of an image guided system. HPV Aptima Negative Negative This nucleic acid amplification test detects fourteen high-risk HPV types (16,18,31,33,35,39,45,51,52,56,58 ,59,66,68) without differentiation. HPV Genotype Reflex Criteria not met, HPV Genotype not performed. PDF Report Reviewed date:02/12/2024 04:13:56 PM Interpretation: Performing Lab:[facility] [place], [address], [address], [place], Phone - [phone], Director - [facility] Notes/Report: Clinical Information:[id number] Dates / Results....01/12/21 NIL, NEGHPV No. of containers..01 ThinPrep Vial REASON FOR VISIT Annual HOG OPERATOR Physical, Annual HOG OPERATOR Physical 60-85+ Medications Medication SIG (Take, Route, Frequency, Duration) Notes Start Date End Date Status Simvastatin 20 MG TAKE 1 TABLET BY FANY TH EVERY DAY IN THE EVENING Oral for 90 Active Multi-Vitamin - 1 tablet Orally Once a day for 30 day(s) With Iron Active Sertraline HCl 100 MG 1 tablet Orally Once a day Active Social History Tobacco Use: Social History Observation Description Date Details (start date - stop date) Never Smoker NA - NA Tobacco Use/Smoking Question Answer Notes Are you a nonsmoker Alcohol Screen (Audit-C) Question Answer Notes Did you have a drink contain ing alcohol in the past year? Yes How often did you have a dri nk containing alcohol in the past year? Monthly or less (1 point) How many drinks did you have on a typical day when you were drinking in the past year? 1 or 2 drinks (0 point) Points 1 Interpretation Negative Sexual History Question Answer Notes Had sex in the past 12 months (vaginal, oral, or anal)? Yes with Men only Prevention strategies discussed: Other Problems Problem Type SNOMED Code ICD Code Onset Dates Problem Status W/U Status Risk Notes Problem Postmenopausal atrophic vaginitis (60897066) Postmenopausal atrophic vaginitis (N95.2) Active confirmed Vital Signs Temperature 97.7 degrees Fahrenheit 02/07/20 24 Blood pressure systolic 130 mm Hg 02/07/20 24 Blood pressure diastolic 80 mm Hg 024 Height 68 in 02/07/2024 Weight 185 lbs 02/07/2024 BMI 28.13 kg/m2 02/07/2024 Encounters Encounter Location Date Provider Diagnosis [facility] [address] [place] [address] 02/07/2024 Lindy Perea Encounter for gynecological examination (general) (routine) without abnormal findings Z01.419 ; Encounter for screening mammogram for malignant neoplasm of breast Z12.31 and Postmenopausal atrophic vaginitis N95.2 Assessments Encounter Date Diagnosis (ICD Code) Assessment Notes Treatment Notes Treatment Clinical Notes Section Notes 02/07/2024 Encounter for gynecological examination (general) (routine) without abnormal findings (ICD-10 - Z01.419) PAP TEST WITH HPV TYPING WAS OBTAINED. 02/07/2024 Encounter for screening mammogram for malignant neoplasm of breast (ICD-10 - Z12.31) REGULAR MAMMOGRAMS AND SBE'S WERE RECOMMENDED. 02/07/2024 Postmenopausal atrophic vaginitis (ICD-10 - N95.2) DISCUSSED FINDINGS, DX AND TX OPTIONS. PAT IS ASYMPTOMATIC. Plan Of Treatment Treatment Notes Assessment Notes Encounter for gynecological examination (general) (routine) without abnormal findings PAP TEST WITH HPV TYPING WAS OBTAINED. Encounter for screening mamm ogram for malignant neoplasm of breast REGULAR MAMMOGRAMS AND SBE'S WERE RECOMMENDED. Postmenopausal atrophic vaginitis DISCUSSED FINDINGS, DX AND TX OPTIONS. PAT IS ASYMPTOMATIC. Pending Test Test Name Order Date MAMMOGRAM, SCREENING 02/07/2024 MM Digital Mammo Screening 02/07/2024 Next Appt Details Follow Up: 1 Year, Reason: Provider Name:Lindy trevino, 02/09/2025 09:00:00 AM, [address], [address], [place], [address], Progress Notes * EMILY HOODDOB:1960 (63 yo F)Acc No.[id number]:02/07/2024 PROGRESS NOTES Patient:?EMILY HOOD Appointment Provider:?Lindy trevino M.D. :1960???Age:63 Y???Sex:Female D ate:02/07/2024 Address:[address] [place] [address], [id number] Pcp:RYANN KNOX MD Subjective: * Chief Complaints: * ??? Annual HOG OPERATOR PhysicalAnnua l HOG OPERATOR Physical 60-85+ * HPI: ???New/Follow-up Patient Consult:? PAT ENTERED MENOPAUSE AT AGE 47.? SHE IS AND DENIES DYSPAREUNIA. HER LAST MAMMOGRAM DONE IN APR 2023 SHOWED BREASTS ARE NOT DENSE AND WAS NORMAL.?? HER LAST PAP TEST IN 2020 WAS NEGATIVE AND HPV NEGATIVE. SHE HAD A COLONOSCOPY DONE IN 2021. SHE HAS NO RISK FACTORS NECESSITATING A BMD AT THIS TIME. PFIZER X 3. ???Annual:? Patient presents for annual exam, ages 60-85, postmenopausal. ?General Health Maintenance:?Current breast complaints:?no breast pain, mass, discharge, or skin changes ?Urinary problems:?patient reports no urinary health problems or bowel health problems ?Calcium intake:?takes adequate calcium via diet and supplementation ?Significant HOG OPERATOR problems:?no significant supervising floorperson symptoms or problems * ROS:?general:?no?chest pain.?no?palpitations.?no?headache.?no?cough.?no?shortness of breath.?no?fever.?no?unexplained weight loss.?no?nausea/vomiting.?no?change in bowel movements.?no blood in stool.?no?genitourinary complaints.?no?skin complaints.? * Medical History:? * [employer] History:?/ Para?2/2.?Sexual activity?currently sexually active.?Last Pap Smear:?01/12/21 NIL, NEG HPV, 05/12/19, NIL, NEG HPV (Elsewhere).?Mammogram:?05/08/23 < 50% density, 05/05/22 < 50% density, 05/03/21 < 50% density, 04/24/20, < 50% density.?LMP and menses?[place].?Colonoscopy?2021, 2009, Booked 02/2022.?Bone Density:?Unknown 2018?.? * OB History:?Total pregnancies?2.?Total living children?2.?NVD?2.? * Surgical History:?Cholecyste ctomy 2006Colonoscopy * Hospitalization/Major Diagno stic Procedure:?2 Vaginal Deliveries See Surgical Hx * Family History:?Mother: dece ased, Breast Cancer.?Father: , Heart Disease.? * Social History:?Tobacco Use:?Tobacco Use/Smoking?Are you a?nonsmoker ???Sexual History:?Sexual History?Had sex in the past 12 months (vaginal, oral, or anal)??Yes ?with?Men only ?Prevention strategies discussed:?Other ?Details of Sexual History?Are you sexually active??Yes ???Drugs/Alcohol:?Drugs?Have you used drugs other than those for medical reasons in the past 12 months??No ?Alcohol Screen (Audit-C)?Did you have a drink containing alcohol in the past year??Yes ?How often did you have a drink containing alcohol in the past year??Monthly or less (1 point) ?How many drinks did you have on a typical day when you were drinking in the past year??1 or 2 drinks (0 point) ?Points?1 ?Interpretation?Negative ???Miscellaneous:?Children: yes, 2. ?Exercise: yes, walking. ?Home smoke detector use: yes. ?Living with: spouse. ?Marital status: . ?Natural support system: yes. 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 ?Sexually active: yes, monogamous relationship. * Medications:?TakingMulti-Vit lemus - Tablet 1 tablet Orally Once a day , Notes to Pharmacist: With IronSertraline HCl 100 MG Tablet 1 tablet Orally Once a day Simvastatin 20 MG Tablet TAKE 1 TABLET BY MOUTH EVERY DAY IN THE EVENING Oral Medication List reviewed and reconciled with the patientTaking Multi-Vitamin - Tablet 1 tablet Orally Once a day , Notes to Pharmacist: With IronTaking Sertraline HCl 100 MG Tablet 1 tablet Orally Once a day Taking Simvastatin 20 MG Tablet TAKE 1 TABLET BY MOUTH EVERY DAY IN THE EVENING Oral Medication List reviewed and reconciled with the patient * Allergies:?Penicillin: Skin Rash/Itching - AllergySulfa Antibiotics: Skin Rash/Itching - Allergyno[Allergies Verified] Objective: * Vitals:?Ht: 68 in, Wt:185lbs , BMI:28.13Index, BP:130/80mm Hg, Temp:97.7F. * Examination: ???General Exam: ?CONSTITUTIONAL:?NECK/THYROID:?RESPIRATORY:?Auscultation: clear to auscultation bilaterally, Respiratory Effort: normal.?CARDIOVASCULAR:?Auscultation: regular rate and rhythm.?BREAST, Right:?BREAST, Left:?GASTROINTESTINAL:?MUSCULOSKELETAL:?SKIN:?NEURO/PSYCH:?Genitourinary: ?EXTERNAL GENITALIA:?VAGINA:?BLADDER:?URETHRA:?CERVIX:?UTERUS:?ADNEXA:?ANUS AND PERINEUM:? Assessment: * Assessment: 1.?Encounter for gynecologic al examination (general) (routine) without abnormal findings - Z01.419?2.?Encounter for screening mammogram for malignant neoplasm of breast - Z12.31?3.?Postmenopausal atrophic vaginitis - N95.2? Plan: * Treatment: ?LAB: Urinalysis (Collection Date & Time - 02/07/2024)* ? Value Reference Range ?PH 6.0 * ?PROTEIN NEG * ?GLUCOSE NEG * ?BLOOD NEG Notes: PAP TEST WITH HPV TYPING WAS OBTAINED.??2.?Encounter for screening mammogram for malignant neoplasm of breast?Imaging: MM Digital Mammo Screening Notes: REGULAR MAMMOGRAMS AND SBE'S WERE RECOMMENDED.??3.?Postmenopausal atrophic vaginitis? Notes: DISCUSSED FINDINGS, DX AND TX OPTIONS. PAT IS ASYMPTOMATIC.?? * Imaging:? * ?Imaging: MAMMOGRAM, SCR EENING * Procedure Codes:? * Preventive Medicine:? ??YOUR PREVENTIVE WELLNESS PLAN:?Osteoporosis prevention?Calcium, D, strength training.?Breast Cancer Screening (Mammogram):?annually.?Cervical Cancer Screening (Pap Smear):?q 3 years with HPV screen.?Colorectal Cancer Screening:?q 10 years.? * Follow Up:?1 Year * Images: Billing Information: * Visit Code:? [id number] Preventive Care Est Pt. Age 65 and over. * Procedure Codes:? * Sign off status: Completed true * Appointment Provider:?Lindy Perea M.D. Date:?02/07/2024 Generated for Sahil herrera/Dominique/eTwanda on:?11/10/2024 09:07 AM EST History and Physical Notes * HPI (History of Present Illness) Category Sub-Category Detail Notes Category Not es New/Follow-up Patient Consult PAT ENTERED MENOPAUSE AT AGE 47. SHE IS AND DENIES DYSPAREUNIA. HER LAST MAMMOGRAM DONE IN APR 2023 SHOWED BREASTS ARE NOT DENSE AND WAS NORMAL. HER LAST PAP TEST IN 2020 WAS NEGATIVE AND HPV NEGATIVE. SHE HAD A COLONOSCOPY DONE IN 2021. SHE HAS NO RISK FACTORS NECESSITATING A BMD AT THIS TIME. PFIZER X 3. Annual General Health Maintenance: Current breast complaints:: no breast pain, mass, discharge, or skin changes Urinary problems:: patient r eleni no urinary health problems or bowel health problems Calcium intake:: takes adequ ate calcium via diet and supplementation Significant HOG OPERATOR problems:: n o significant supervising floorperson symptoms or problems Examination Category Sub-Category Detail Notes Category Not es General Exam CONSTITUTIONAL: General Appearan ce:: alert, in no acute distress, normal, well nourished NECK/THYROID: Thyroid:: normal size and shape Inspection/Palpation:: normal RESPIRATORY: Auscultation: clear to auscultation bilaterally, Respiratory Effort: normal CARDIOVASCULAR: Auscultation: regula r rate and rhythm GASTROINTESTINAL: Hernias:: no hernias present, no inguinal adenopathy Liver and Spleen:: normal Abdomen:: no masses, nontender, nondiste nded MUSCULOSKELETAL: Inspection/Palpation:: no clubb ing, cyanosis, or edema SKIN: Skin:: normal NEURO/PSYCH: Mood/Affect:: normal Orientation:: time , place, person BREAST, Right: Inspection/Palpation :: no discharge, no masses present, no nipple retraction, no skin changes, no skin dimpling, no tenderness, no lymphadenopathy, no axillary mass, no axillary tenderness BREAST, Left: Inspection/Palpation :: no discharge, no masses present, no nipple retraction, no skin changes, no skin dimpling, no tenderness, no lymphadenopathy, no axillary mass, no axillary tenderness Genitourinary EXTERNAL GENITALIA: External Genitalia:: nor mal, no lesions VAGINA: Vagina:: atrophic vaginal tissue , minimal moisture BLADDER: Bladder:: no mass, nontender URETHRA: Urethra:: no erythema or lesions present CERVIX: Cervix:: no lesions, nontender UTERUS: Uterus:: nontender, normal conto ur, normal mobility, normal size ADNEXA: Adnexa:: no masses, no tendernes s ANUS AND PERINEUM: Anus/Perineum:: visually norm al
--- OUTSIDE RECORDS SUMMARY | 2024-11-10 09:07 | XMS_ITS | Patient Health Record ---
Author Organization [facility] Address [address] [place] [address] Care Team Providers Care Cut Off Saw Grader Name Role Phone LISETTE MURPHY, RYANN Primary Care Provider Lindy Hong Unavailable [phone] Allergies Allergen (clinical drug ingredient) Drug/Non Drug Allergy documented on EMR Reaction Allergy Type Onset Date Status Penicillin Skin Rash/Itching Drug Allergy Active Substance with sulfonamide structure and antibacterial mechanism of action (substance) Sulfa Antibiotics Skin Rash/Itching Drug Allergy Active Results Component Value Reference Range Notes Urinalysis Reviewed date:02/07/2024 09:43:52 AM Interpretation: Performing Lab: Notes/Report: PH 6.0 PROTEIN NEG GLUCOSE NEG BLOOD NEG [id number] IGP No Culture 30 Plus Reviewed date:02/12/2024 04:14:18 PM Interpretation: Performing Lab:[facility] [place], [address], [place], Phone - [phone], Director - [facility] Notes/Report: Clinical Information:[id number] Dates / Results....01/12/21 NIL, NEGHPV No. of containers..01 ThinPrep Vial DIAGNOSIS: NEGATIVE FOR INTRAEPITHELIAL LESION OR MALIGNANCY. CELLULAR CHANGES ASSOCIATED WITH ATROPHY ARE PRESENT. Specimen adequacy: Satisfactory for evaluation. Endocervical component may not be distinguished in cases of atrophy. Clinician provided ICD10: Z0 1.419 Performed by: Ivy self, Logging Equipment Operator (ASCP) . . Note: The Pap smear [...] Report Reviewed date:02/12/2024 04:13:56 PM Interpretation: Performing Lab:[facility], [address], [place], Phone - [phone], Director - [facility] Notes/Report: Clinical Information:[id number] Dates / Results....01/12/21 NIL, NEGHPV No. of containers..01 ThinPrep Vial Reason For Referral No Information Medications Medication SIG (Take, Route, Frequency, Duration) [...] Status Risk Notes Problem Postmenopausal atrophic vaginitis (39255711) Postmenopausal atrophic vaginitis (N95.2) Active confirmed Vital Signs Temperature 97.7 degrees Fahrenheit 02/07/2024 Blood pressure diastolic 80 mm Hg 02/07/2024 Height 68 in 02/07/2024 Blood pressure systolic 130 mm Hg 02/07/2024 Weight 185 lbs 02/07/2024 BMI 28.13 kg/m2 02/07/2024 Encounters Encounter Location Date Provider Diagnosis [facility] [address] [place] [address] 02/07/2024 Lindy Perea Encounter for gynecological examination [...] OPTIONS. PAT IS ASYMPTOMATIC. Plan Of Treatment Pending Test Test Name Order Date MAMMOGRAM, SCREENING 01/25/2022 MAMMOGRAM, SCREENING 02/01/2023 MAMMOGRAM, SCREENING 02/07/2024 Urinalysis 01/25/2022 MM Digital Mammo Screening 01/25/2022 MM Digital Mammo Screening 02/01/2023 MM Digital Mammo Screening 02/07/2024 Next Appt Details Provider Name:Lindy trevino, 02/09/2025 09:00:00 AM, [address], [place], [address], Insurance Providers Payer Name Payer Address Payer Phone Subscriber Number Group Number Insured Name Patient Relationship to Insured Coverage Start Date Coverage End Date [employer] [place] [address] [place] [address] [phone] [id number] ALEXANDRE Spouse - patient is the spouse of the insured Medical (General) History Surgical History Surgery Date(Month/Year) Cholecystectomy 2006 Colonoscopy Hospitalization History Reason Date(Month/Year) See Surgical Hx 2 Vaginal Deliveries
--- NOTE | 2024-11-10 09:12 | MHC.PC.OV ---
Vital Signs 11/10/24 09:13 Height 5 ft 8 in Weight 194 lb 4 oz BMI 29.5 BP 132/80 Blood Pressure Location Lt brachial Position Sitting Pulse 76 Pulse Source Pulse Oximeter Temp 97.1 F Temp Source Skin Pulse Oximetry (%) 97 Oxygen Delivery Method Room Air Intake Visit Reasons: Backpain and shoulder Pain Anode Adjuster Required: No Accompanied by: Self / Same As Patient Allergies ampicillin Allergy (Unknown, Verified 11/10/24 09:20) Rash Sulfa (Sulfonamide Antibiotics) Allergy (Verified 11/10/24 09:20) Rash Medication List - Last Reconciled 11/10/24 by VIOLETA Whitfield multivitamin 1 tab PO DAILY omega-3 acid ethyl esters (Lovaza) 2 caps PO BID 30 days rosuvastatin 5 mg PO DAILY sertraline 100 mg PO DAILY Tobacco use date assessed: 11/10/24 Fall risk assessment: 1 Fall in past year Last assessed Fall Risk: 11/10/24 Dental Screening Dental Screen Date: 11/10/24 Did you have a dental visit in the last 12 months?: Yes Did you have a dental problem in the last 6 months where you did not have access to dental care?: No Was dental information given to patient?: Patient has dentist HPI Backpain and shoulder Pain HPI Details The patient is a 59-year-old female with significant past medical history of degenerative disc disease, cervical, The patient is presenting today with status post fallx1 day Patient reports that she fell on ice yesterday and landed on her left shoulder Reports that the pain is a 10/10 movement but is 2/10 without movement The patient has her limited range of motion left shoulder Left shoulder without discoloration or edema Left clavicle is swollen and tender to touch Patient was given an arm sling was sent for a stat left clavicle x-ray Meloxicam 15 mg was ordered as well, discussed with patient that she could use cool compress to decrease the swelling and pain as needed She denies shortness of breath, denies chest pain, denies heart palpitation denies dizziness PFSH Medical History Mixed dyslipidemia Degenerative disc disease, cervical Generalized anxiety disorder Surgical History S/P trigger finger release Hx of colonoscopy History of cholecystectomy Family History Father Coronary artery disease Mother Breast cancer, Onset Age: 55 Hypothyroidism Social History Housing: House Patient Tobacco Use Status: Never used Tobacco e-Cigarette/Vaping Use: Never Used service: No Current occupational status: retired Cognitive needs: No Hearing needs: No Vision needs: Yes Questionnaire PHQ-9 Over the last 2 weeks, how often have you been bothered by any of the following problems? 1. Little interest or pleasure in doing things: not at all 2. Feeling down, depressed, or hopeless: not at all 3. Trouble falling or staying asleep, or sleeping too much: more than half the days 4. Feeling tired or having little energy: several days 5. Poor appetite or overeating: several days 6. Feeling bad about yourself - or that you are a failure or have let yourself or your family down: several days 7. Trouble concentrating on things, such as reading the newspaper or watching television: not at all 8. Moving or speaking so slowly that other people could have noticed. Or the opposite - being so fidgety or restless that you have been moving around a lot more than usual: not at all 9. Thoughts that you would be better off or of hurting yourself in some way: not at all Total score: 5 Depression Screening Interpretation: Negative (Depression controlled on sertraline) Depression Screening Done: Yes 52016 - PHQ-9 Billing: Yes Source: Developed by Drs. Enoch Duff, Alena Leonardo, Ar Kilgore and colleagues, with an educational lukas from [employer]. Thrive Questionnaire Date Thrive assessed: 11/10/24 I am a: Patient What is your living situation today?: I have a steady place to live Within the past 12 months, did the food you bought not last and you didn't have the money to get more?: Never true Within the past 12 months, did you worry whether your food would run out before you got money to buy more?: Never true Do you have trouble paying for medicines?: No Do you have trouble getting transportation to medical appointments?: No Do you have trouble paying your heating and electricity bill?: No Do you have trouble taking care of your child, family member or friend?: No Do you have trouble with day-to-day activities such as bathing, preparing meals, shopping, managing finances, etc.?: No Are you currently unemployed and looking for a job?: No Are you interested in more education?: No Please select the resources that you would like help with: None Currently or been in a relationship where the following occur: No concerns reported THRIVE Score: 0 AUDIT C Alcohol Use Questionnaire (AUDIT-C) 1. How often do you have a drink containing alcohol?: 2-4 times a month 2. How many drinks containing alcohol do you have on a typical day when you are drinking?: 1 or 2 3. How often do you have six or more drinks on one occasion?: Never Total Score: 2 ARELY-7 AMB Questionnaire ARELY-7 Date ARELY - 7 assessed: 11/10/24 Feeling nervous, anxious, or on edge: 0 = Not at all Not being able to stop or control worryin = Not at all Worrying too much about different things: 0 = Not at all Trouble relaxin = Not at all Being so restless that it is hard to sit still: 0 = Not at all Becoming easily annoyed or irritable: 0 = Not at all Feeling afraid as if something awful might happen: 0 = Not at all Total ARELY-7 score (0-4 normal; 5-9 mild; 10-14 moderate; 15-21 severe): 0 Source: Developed by Drs. Enoch Duff, Alena Leonardo, Ar Kilgore and colleagues, with an educational lukas from [employer]. ARELY-7 Assessment Billing ARELY-7 Assessment Tool: ARELY-7 Assessment 62080 Review of Systems Const Details: Denies chills, Denies fatigue, Denies fever(s), Denies headache(s) and Denies weakness HEENT Denies change in vision, Denies dizziness, Denies headache(s), Denies hearing loss, Denies nasal congestion, Denies sinus pain, Denies sinus pressure and Denies sore throat Card Denies chest pain, Denies lightheadedness, Denies dyspnea and Denies other (palpitations) Resp Denies cough, Denies dyspnea and Denies wheezing GI Denies abdominal pain, Denies melena, Denies hematochezia, Denies change in bowel habits, Denies dyspepsia and Denies nausea Denies hematuria and Denies dysuria Musc Denies abnormal gait, Denies myalgias, Denies arthralgias, Denies numbness and Denies tingling Other: See HPI Skin/Breast Denies rash, Denies unusual bruising and Denies wounds Neuro Denies abnormal gait, Denies dizziness, Denies headache(s), Denies memory loss, Denies numbness, Denies Sensory deficit (Neuro), Denies tingling and Denies weakness Psych Denies anxiety, Denies depression and Denies memory loss Endo Denies cold intolerance, Denies fatigue, Denies heat intolerance, Denies polydipsia and Denies polyuria Alvin/Lymph Denies easy bleeding and Denies easy bruising Aller/Immun Denies wheezing Physical exam (Primary Care) Vital Signs: Last Vital Signs Temp 97.1 F 11/10/24 09:13 Pulse 76 11/10/24 09:13 BP 132/80 11/10/24 09:13 Pulse Ox 97 11/10/24 09:13 Oxygen Delivery Method Room Air 11/10/24 09:13 BMI result Body Mass Index 29.5 Tobacco/Smoking Status: Tobacco use Status Tobacco use date assessed 11/10/24 11/10/24 09:16 Patient Tobacco Use Status Never used Tobacco 11/10/24 09:16 e-Cigarette/Vaping Use Never Used 11/10/24 09:16 PHQ-9: PHQ-9 Score PHQ-9: Total score 5 11/10/24 09:28 Depression Screening Interpretation: Negative (Depression controlled on sertraline) Thrive Assessment: Date of Thrive Assessment Date Thrive assessed 11/10/24 11/10/24 09:16 Currently or been in a relationship where the following occur: No concerns reported Const Other: General: no acute distress, well developed, alert and awake Nutritional Appearance: well nourished Orientation/consciousness: patient oriented x3 HENMT Head: Yes normocephalic and Yes atraumatic Ears: hearing grossly normal bilaterally and TM's normal bilaterally General nose exam: Normal external nose present and Normal nares present Mouth: Normal oral and palatal mucosa present and moist mucous membranes Eyes Pupils: Equal, round and reactive pupils present and Pupil accommodation reflex normal EOM: EOMs intact bilaterally Neck Neck: Yes normal visual inspection, Yes no lymphadenopathy and Yes trachea midline Thyroid: Thyroid normal Carotids: no bruits Lymphatic: no lymphadenopathy noted Resp Effort & Inspection: normal respiratory effort Auscultation: clear to auscultation bilaterally Cardio Rate: regular rate Rhythm: regular rhythm Heart sounds: S1 normal heart sound present, S2 normal heart sound present, no gallops, no murmurs and no rubs GI Palpation (GI): Abdomen is soft and nontender to palpation Auscultation: normal bowel sounds General: Yes no CVA tenderness Back/Spine/Pelvis Back: no CVA tenderness Left shoulder: No edema, no erythema Left clavicle: Edema,+ pain with palpation, +cms and fingers, no numbness or tingling in left arm or fingers Skin General: warm and dry. Normal skin color. Normal skin turgor Lesions: no lesions Nails: normal Extrem General: Yes normal to inspection, No edema and No calf tenderness Psych Appearance: grossly normal Affect: normal affect Attitude: cooperative Thought process: Normal thought process present Coding Level of Care Code Est Pt Level 3 (34689) Diagnoses Closed nondisplaced fracture of left clavicle, unspecified part of clavicle, initial encounter S42.002A Encounter type: initial encounter Clavicle location: unspecified part of clavicle Fracture alignment: nondisplaced Pain of left clavicle M89.8X1 Impaired range of motion of left shoulder M25.612 Laterality: left Status post fall Z91.81 Additional Codes PHQ-9 - 39527 - PHQ-9 Billing: Yes ([id number]) ARELY-7 Assessment Billing - ARELY-7 Assessment Tool: ARELY-7 Assessment 45938 ([id number]) Time Spent (min) 25 Assessment & Plan Assessment & Plan (1) Closed left clavicular fracture: Code(s): S42.002A - Fracture of unspecified part of left clavicle, initial encounter for closed fracture Category: Medical Qualifiers: Encounter type: initial encounter Clavicle location: unspecified part of clavicle Fracture alignment: nondisplaced Qualified Code(s): S42.002A - Fracture of unspecified part of left clavicle, initial encounter for closed fracture Plan: Status post fall on the ice yesterday. Reports that she fell left shoulder, limited range of motion in left shoulder on exam No appearing injuries noted to left shoulder but the patient left clavicle is swollen and tender to palpation and light touch We will order a stat x-ray of the left clavicle (2) Pain of left clavicle: Code(s): M89.8X1 - Other specified disorders of bone, shoulder Category: Medical Plan: Meloxicam 15 mg ordered. Discussed with patient that she could ice area to decrease swelling and help with the pain as well (3) Limited range of motion (ROM) of shoulder: Code(s): M25.619 - Stiffness of unspecified shoulder, not elsewhere classified Category: Medical Qualifiers: Laterality: left Qualified Code(s): M25.612 - Stiffness of left shoulder, not elsewhere classified Plan: The patient was given a sling to immobilize the left arm (4) Status post fall: Code(s): Z91.81 - History of falling Category: Medical Plan: Reports that she fell on the ice and is having pain in her left shoulder/clavicle area A sling was ordered to immobilize the left arm. Patient was ordered meloxicam 15 mg with the pain and she was order a stat clavicle x-ray to further evaluate Orders: Orders XR clavicle LT Today M25.619 - Stiffness of unspecified shoulder, not elsewhere classified, M89.8X1 - Other specified disorders of bone, shoulder, S42.002A - Fracture of unspecified part of left clavicle, initial encounter for closed fracture, Z91.81 - History of falling Medications: New meloxicam 15 mg PO DAILY 30 tabs 1RF
[2024-11-10 09:13] VITALS: BP 132/80; PULSE 76; TEMP 36.2; O2SAT 97; BMI 29.5
== END 2024-11-10 09:57 | disposition home or self-care (01) ==
PROVIDERS: PCP Internal Medicine
DX: S42.002A Fracture of unspecified part of left clavicle, initial encounter for closed fracture (principal); M89.8X1 Other specified disorders of bone, shoulder; M25.612 Stiffness of left shoulder, not elsewhere classified; Z91.81 History of falling

== ENCOUNTER 2024-11-10 09:04 | Outpatient (REF) | payer MEDICARE, BC, SELFPAY ==
--- NOTE | ~2024-11-10 | XR_ITS ---
CLINICAL HISTORY: M25.619 - Stiffness of unspecified shoulder, not elsewhere classified 2 view left clavicle Comparison: None Findings: Displaced mid shaft fracture left clavicle with approximately 1/2 shaft's width inferior displacement of the distal fracture fragment. Mild to moderate degenerative arthritis AC joint. Intact glenohumeral joint based on AP view. Soft tissues intact. No acute process evident in the included left lung. Impression: Displaced mid shaft fracture left clavicle. This document has been electronically signed by: Mehdi Wilson MD on 11/10/2024 11:04:21
== END 2024-11-10 09:05 | disposition home or self-care (01) ==
LOC: HO.XRAY 09:04
PROVIDERS: PCP Internal Medicine
DX: S42.002A Fracture of unspecified part of left clavicle, initial encounter for closed fracture (principal); M25.612 Stiffness of left shoulder, not elsewhere classified; M89.8X1 Other specified disorders of bone, shoulder; Z91.81 History of falling
CPT/HCPCS: 73000; 96127; 99212

== ENCOUNTER → 2024-11-10 09:58 | Outpatient (BNV) | payer MEDICARE, BC, SELFPAY | PROVIDERS: PCP Internal Medicine; Visit Provider Radiology Diagnostic Radiology | DX: S42.022A Displaced fracture of shaft of left clavicle, initial encounter for closed fracture (principal) | CPT/HCPCS: 73000 ==

== ENCOUNTER 2024-11-24 08:26 | Outpatient (REF) | payer MEDICARE, BC, SELFPAY ==
--- NOTE | ~2024-11-24 | XR_ITS ---
CLINICAL HISTORY: M89.8X1 - Other specified disorders of bone, shoulder Left clavicle two views Comparison: 11/10/2024 Findings: Transverse clavicle fracture now with inferior displacement. Distal fragment inferiorly displaced by 1.6 cm. Fracture fragment overlap noted by 1.5 cm. No new bony abnormality identified. Impression: Left clavicle fracture now demonstrates displacement This document has been electronically signed by: Yaw Sotelo MD on 11/25/2024 18:29:01
--- OUTSIDE RECORDS SUMMARY | 2024-11-24 08:45 | XMS_ITS | Patient Health Record ---
Author Organization [facility] Address [address] [place] [address] Care Team Providers Care Associate Professor Of Radiology Name Role Phone Gerson MURPHY, Tiffani Primary Care Provider Enoch Betancur [phone] ALLERGIES Allergen (clinical drug ingredient) Drug/Non Drug [...] malignant neoplasm of colon (Z12.11) Active confirmed [id number] Problem Preprocedural examination (Z01.818) Active confirmed [id number] Problem Diverticulosis of colon (K57.30) Active confirmed Diverticulosi s of colon (184682141) PLAN OF TREATMENT Future Test Test Name Order Date COLONOSCOPY 12/28/2021 Insurance Providers Payer Name Payer Address Payer Phone Subscriber Number Group Number Insured Name Patient Relationship to Insured Coverage Start Date Coverage End Date [facility] [address] [place] [address] [id number] EMILY ALEXANDRE Self - patient is the insured MEDICAL (GENERAL) HISTORY Medical History History ICD Code High cholesterol Mild anxiety/depression Negative colonoscopy in 2009 Denies LA,DM,CVA,Lung disease,renal dise ase Surgical History Surgery Date(Month/Year) CCY 2005
--- OUTSIDE RECORDS SUMMARY | 2024-11-24 08:45 | XMS_ITS | Patient Health Record ---
Author Organization [facility] Address [address] [place] [address] Care Team Providers Care Truck Switcher Name Role Phone LISETTE MURPHY, RYANN Primary Care Provider Lindy Hong Unavailable [phone] Allergies Allergen (clinical drug ingredient) Drug/Non Drug Allergy documented on EMR Reaction Allergy Type Onset Date Status Penicillin Skin Rash/Itching Drug Allergy Active Substance with sulfonamide structure and antibacterial mechanism of action (substance) Sulfa Antibiotics Skin Rash/Itching Drug Allergy Active Results Component Value Reference Range Notes Urinalysis Reviewed date:02/07/2024 09:43:52 AM Interpretation: Performing Lab: Notes/Report: PH 6.0 PROTEIN NEG GLUCOSE NEG BLOOD NEG [id number] IGP No Culture 30 Plus Reviewed date:02/12/2024 04:14:18 PM Interpretation: Performing Lab:[facility], [address], [address], [place], Phone - [phone], Director - [facility] Notes/Report: Clinical Information:[id number] Dates / Results....01/12/21 NIL, NEGHPV No. of containers..01 ThinPrep Vial DIAGNOSIS: NEGATIVE FOR INTRAEPITHELIAL LESION OR MALIGNANCY. CELLULAR CHANGES ASSOCIATED WITH ATROPHY ARE PRESENT. Specimen adequacy: Satisfactory for evaluation. Endocervical component may not be distinguished in cases of atrophy. Clinician provided ICD10: Z0 1.419 Performed by: Ivy self, Sock Turner (ASCP) . . Note: The Pap smear [...] Performing Lab:[facility], [address], [address], [place], Phone - [phone], Director - [facility] Notes/Report: Clinical Information:[id number] Dates / Results....01/12/21 NIL, NEGHPV No. of [...] Status Risk Notes Problem Postmenopausal atrophic vaginitis (78384142) Postmenopausal atrophic vaginitis (N95.2) Active confirmed Vital Signs Temperature 97.7 degrees Fahrenheit 02/07/2024 Blood pressure diastolic 80 mm Hg 02/07/2024 Height 68 in 02/07/2024 Blood pressure systolic 130 mm Hg 02/07/2024 Weight 185 lbs 02/07/2024 BMI 28.13 kg/m2 02/07/2024 Encounters Encounter Location Date Provider Diagnosis [facility] [address] [place] [address] 02/07/2024 Lindy Perea Encounter for gynecological examination [...] Provider Name:Lindy trevino, 02/09/2025 09:00:00 AM, [address], [place], [address], Insurance Providers Payer Name Payer Address Payer Phone Subscriber Number Group Number Insured Name Patient Relationship to Insured Coverage Start Date Coverage End Date [employer] [place] [address] [place] [address] [phone] [id number] ALEXANDRE Spouse - patient is the spouse of the insured Medical (General) History Surgical History Surgery Date(Month/Year) Cholecystectomy 2006 Colonoscopy Hospitalization History Reason Date(Month/Year) See Surgical Hx 2 Vaginal Deliveries
--- OUTSIDE RECORDS SUMMARY | 2024-11-24 08:45 | XMS_ITS ---
Author Organization [facility] [facility] Address [address] [place] [address] Care Team Providers Care Spin Table Operator Name Role Phone LISETTE MURPHY, RYANN Primary Care Provider Lindy Hong Unavailable [phone] Allergies Allergen (clinical drug ingredient) Drug/Non Drug Allergy documented on EMR Reaction Allergy Type Onset Date Status Penicillin Skin Rash/Itching Drug Allergy Active Substance with sulfonamide structure and antibacterial mechanism of action (substance) Sulfa Antibiotics Skin Rash/Itching Drug Allergy Active Results Component Value Reference Range Notes Urinalysis Reviewed date:02/07/2024 09:43:52 AM Interpretation: Performing Lab: Notes/Report: PH 6.0 PROTEIN NEG GLUCOSE NEG BLOOD NEG [id number] IGP No Culture 30 Plus Reviewed date:02/12/2024 04:14:18 PM Interpretation: Performing Lab:[facility], [facility] [address], [place], Phone - [phone], Director - [facility] Notes/Report: Clinical Information:[id number] Dates / Results....01/12/21 NIL, NEGHPV No. of containers..01 ThinPrep Vial DIAGNOSIS: NEGATIVE FOR INTRAEPITHELIAL LESION OR MALIGNANCY. CELLULAR CHANGES ASSOCIATED WITH ATROPHY ARE PRESENT. Specimen adequacy: Satisfactory for evaluation. Endocervical component may not be distinguished in cases of atrophy. Clinician provided ICD10: Z0 1.419 Performed by: Ivy self, Rubber Goods Cutter Finisher (ASCP) . . Note: The Pap smear [...] Lab:[facility], [address], [address], [place], Phone - [phone], Director - [facility] Notes/Report: Clinical Information:[id number] Dates / Results....01/12/21 NIL, NEGHPV No. 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 Physical 60-85+ Medications Medication SIG (Take, Route, [...] Status Risk Notes Problem Postmenopausal atrophic vaginitis (92889850) Postmenopausal atrophic vaginitis (N95.2) Active confirmed Vital Signs Temperature 97.7 degrees Fahrenheit 02/07/20 24 Blood pressure systolic 130 mm Hg 02/07/20 24 Blood pressure diastolic 80 mm Hg 024 Height 68 in 02/07/2024 Weight 185 lbs 02/07/2024 BMI 28.13 kg/m2 02/07/2024 Encounters Encounter Location Date Provider Diagnosis [facility] [address] [place] [address] 02/07/2024 Lindy Perea Encounter for gynecological examination [...] Provider Name:Lindy trevino, 02/09/2025 09:00:00 AM, [address], [place], [address], Progress Notes * EMILY HOODDOB:1960 (63 yo F)Acc No.[id number]:02/07/2024 PROGRESS NOTES Patient:?EMILY HOOD Appointment Provider:?Lindy trevino M.D. :1960???Age:63 Y???Sex:Female D ate:02/07/2024 Address:[address] [place] [address], [id number] Pcp:RYANN KNOX MD Subjective: * Chief Complaints: * ??? 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 [...] adequate calcium via diet and supplementation ?Significant MARINE OIL TERMINAL SUPERINTENDENT problems:?no significant evp general counsel symptoms or problems * ROS:?general:?no?chest pain.?no?palpitations.?no?headache.?no?cough.?no?shortness of breath.?no?fever.?no?unexplained weight loss.?no?nausea/vomiting.?no?change in bowel movements.?no blood in stool.?no?genitourinary complaints.?no?skin complaints.? * Medical History:? * Nutrition Internship History:?/ Para?2/2.?Sexual activity?currently sexually active.?Last Pap Smear:?01/12/21 NIL, NEG HPV, 05/12/19, NIL, NEG HPV (Elsewhere).?Mammogram:?05/08/23 < 50% density, 05/05/22 < 50% density, 05/03/21 < 50% density, 04/24/20, < 50% density.?LMP and menses?Marina.?Colonoscopy?2021, 2009, Booked 02/2022.?Bone Density:?Unknown 2018?.? * OB [...] BP:130/80mm Hg, Temp:97.7F. * Examination: ???General Exam: ?CONSTITUTIONAL:?General Appearance:?alert, in no acute distress, normal, well nourished ?NECK/THYROID:?Inspection/Palpation:?normal ?Thyroid:?normal size and shape ?RESPIRATORY:?Auscultation: clear to auscultation bilaterally, Respiratory Effort: normal.?CARDIOVASCULAR:?Auscultation: regular rate and rhythm.?BREAST, Right:?Inspection/Palpation:?no discharge, no masses present, no nipple retraction, no skin changes, no skin dimpling, no tenderness, no lymphadenopathy, no axillary mass, no axillary tenderness ?BREAST, Left:?Inspection/Palpation:?no discharge, no masses present, no nipple retraction, no skin changes, no skin dimpling, no tenderness, no lymphadenopathy, no axillary mass, no axillary tenderness ?GASTROINTESTINAL:?Abdomen:?no masses, nontender, nondistended ?Liver and Spleen:?normal ?Hernias:?no hernias present, no inguinal adenopathy ?MUSCULOSKELETAL:?Inspection/Palpation:?no clubbing, cyanosis, or edema ?SKIN:?Skin:?normal ?NEURO/PSYCH:?Orientation:?time , place, person ?Mood/Affect:?normal?Genitourinary: ?EXTERNAL GENITALIA:?External Genitalia:?normal, no lesions ?VAGINA:?Vagina:?atrophic vaginal tissue, minimal moisture ?BLADDER:?Bladder:?no mass, nontender ?URETHRA:?Urethra:?no erythema or lesions present ?CERVIX:?Cervix:?no lesions, nontender ?UTERUS:?Uterus:?nontender, normal contour, normal mobility, normal size ?ADNEXA:?Adnexa:?no masses, no tenderness ?ANUS AND PERINEUM:?Anus/Perineum:?visually normal??? Assessment: * Assessment: 1.?Encounter for gynecologic al [...] * Images: Billing Information: * Visit Code:? 43210 Preventive Care Est Pt. Age 65 and over. * Procedure Codes:? * Sign off status: Completed true * Appointment Provider:?Lindy Perea M.D. Date:?02/07/2024 Generated for Sahil herrera/Dominique/eTransmitting on:?11/24/2024 08:44 AM EST History and Physical Notes * [...] or skin changes Urinary problems:: patient r eports no urinary health problems or bowel health problems Calcium intake:: takes adequ ate calcium via diet and supplementation Significant MARINE OIL TERMINAL SUPERINTENDENT problems:: n o significant evp general counsel symptoms or problems Examination Category Sub-Category Detail [...]
== END 2024-11-24 08:27 | disposition home or self-care (01) ==
LOC: HO.HOSX 08:26
PROVIDERS: Visit Provider Physician Assistant
DX: S42.002A Fracture of unspecified part of left clavicle, initial encounter for closed fracture (principal); M89.8X1 Other specified disorders of bone, shoulder
CPT/HCPCS: 73000; 99202

== ENCOUNTER 2024-11-24 13:20 | Outpatient (AMB) | payer MEDICARE, BC, SELFPAY ==
--- NOTE | 2024-11-24 13:49 | MHC.OFFVIS ---
Vital Signs 11/24/24 13:50 Height 5 ft 8 in Weight 194 lb BMI 29.5 Intake Visit Reasons: FC-LT clavicle fx, DOI 11/09/24 Intake Note: Claudia is a 64 year old female who presents today for an evaluation of a left clavicle fracture, DOI: 11/09/24. Patient reports she fell on to her left side after slipping on ice. Patient was seen by her PCP the following day, she was placed in a sling and an x-ray was ordered. Patient is taking Meloxicam for pain. Denies numbness or tingling. Denies prior injuries or surgeries to her left shoulder. Allergies ampicillin Allergy (Unknown, Verified 11/24/24 13:51) Rash Sulfa (Sulfonamide Antibiotics) Allergy (Verified 11/24/24 13:51) Rash HPI HPI FC-LT clavicle fx, DOI 11/09/24: Details: Claudia is a 64 year old female who presents today for an evaluation of a left clavicle fracture, DOI: 11/09/24. Patient reports she fell on to her left side after slipping on ice. Patient was seen by her PCP the following day, she was placed in a sling and an x-ray was ordered. Patient is taking Meloxicam for pain. Denies numbness or tingling. Denies prior injuries or surgeries to her left shoulder. [facility] Medical History Mixed dyslipidemia Degenerative disc disease, cervical Generalized anxiety disorder Surgical History S/P trigger finger release Hx of colonoscopy History of cholecystectomy Family History Father Coronary artery disease Mother Breast cancer, Onset Age: 55 Hypothyroidism Social History Housing: House Patient Tobacco Use Status: Never used Tobacco e-Cigarette/Vaping Use: Never Used service: No Current occupational status: retired Cognitive needs: No Hearing needs: No Vision needs: Yes Review of Systems Const All systems reviewed & are unremarkable except as noted in HPI and below Physical Exam Vital Signs: BMI result Body Mass Index 29.5 Extrem Other: There is noted to be a deformity in the mid shaft left clavicle of the patient's left shoulder Patient's left shoulder otherwise normal to inspection No erythema, ecchymosis, edema noted No lacerations, abrasions, open areas No evidence of infection Patient reports no tenderness to palpation of the left clavicle or shoulder at the level of the fracture Distal sensation intact Capillary refill brisk Office Procedures AMB Fracture Care Fracture Billing Code: Fracture Billing Code Results Reviewed Results Reviewed: X-rays obtained in the office today and independently reviewed by me, Mateusz Ngo PA-C, demonstrate displaced fracture of the left mid shaft clavicle with minimal evidence of shortening. Assessment & Plan Assessment & Plan (1) Closed left clavicular fracture: Code(s): S42.002A - Fracture of unspecified part of left clavicle, initial encounter for closed fracture Category: Medical Qualifiers: Encounter type: initial encounter Clavicle location: unspecified part of clavicle Fracture alignment: nondisplaced Qualified Code(s): S42.002A - Fracture of unspecified part of left clavicle, initial encounter for closed fracture Plan 1. Left clavicle fracture Date of injury 11/09/2024 Patient was discussed with Dr. Aguayo, who is available but did not see the patient with me in clinic, and a collaborative treatment plan was formed: At this time, no surgery is indicated for this patient's clavicle fracture Patient is educated about this and expresses understanding of this Patient is educated she can wear the sling for comfort, but should be allowing the arm to hang down Patient was educated that range of motion of the left elbow, wrist, hand, is totally okay, but she should avoid any active range of motion away from the body with the left shoulder Patient was amenable to this plan Patient will follow-up in 4-5 weeks with repeat x-rays for reassessment, sooner with any acute concerns Orders: Orders XR clavicle LT Today M89.8X1 - Other specified disorders of bone, shoulder Coding Level of Care Code New Pt Level 3 (73072) Diagnoses Closed nondisplaced fracture of left clavicle, unspecified part of clavicle, initial encounter S42.002A Encounter type: initial encounter Clavicle location: unspecified part of clavicle Fracture alignment: nondisplaced CPT Codes Fracture Care - Fracture Billing Code: Fracture Billing Code ([id number])
[2024-11-24 13:50] VITALS: BMI 29.5
== END 2024-11-24 14:14 | disposition home or self-care (01) ==
PROVIDERS: PCP Internal Medicine
DX: S42.002A Fracture of unspecified part of left clavicle, initial encounter for closed fracture (principal)
CPT/HCPCS: 99203

== ENCOUNTER → 2024-11-24 13:44 | Outpatient (BNV) | payer MEDICARE, BC, SELFPAY | PROVIDERS: Visit Provider Radiology Diagnostic Radiology | DX: S42.002A Fracture of unspecified part of left clavicle, initial encounter for closed fracture (principal) | CPT/HCPCS: 73000 ==

== ENCOUNTER 2024-12-29 08:13 | Outpatient (REF) | payer MEDICARE, BC, SELFPAY ==
--- NOTE | ~2024-12-29 | XR_ITS ---
EXAMINATION: XR CLAVICLE LEFT HISTORY: M89.8X1 - Other specified disorders of bone, shoulder COMPARISON: Comparison is made with the prior examination dated 11/24/2024. FINDINGS: Two views of the left clavicle are submitted. Osseous mineralization is normal. Again seen is a fracture of the midshaft of the clavicle with inferior displacement and slight overriding of the distal fracture fragment. There is new callus formation seen at the fracture site, consistent with healing. There is mild degenerative change of the AC joint. The soft tissues are unremarkable. XR/XR clavicle LT IMPRESSION: Healing fracture of the midshaft of the left clavicle. Electronically signed by: Enoch Taveras MD 12/29/2024 02:58 PM EDT
--- OUTSIDE RECORDS SUMMARY | 2024-12-29 08:39 | XMS_ITS | Patient Health Record ---
Author Organization [facility] Address [address] [place] [address] Care Team Providers Care Board Certified Arts Therapist Name Role Phone Gerson MURPHY, Tiffani Primary Care Provider Enoch Betancur Unavailable [phone] Allergies Allergen (clinical drug ingredient) Drug/Non Drug Allergy documented on EMR Reaction Allergy Type Onset Date Status Penicillin Unknown Drug Allergy Active Substance with sulfonamide structure and antibacterial mechanism of action (substance) Sulfa Antibiotics Unknown Drug Allergy Active Reason For Referral No Information Medications Medication SIG (Take, Route, Fr equency, Duration) Notes Start Date End Date Status One Daily - 1 tablet Orally Once a day for 30 day(s) Active Simvastatin 20 MG 1 tablet in the even ing Orally Once a day for 30 day(s) Active Sertraline HCl 100 MG 1 tablet Orally On ce a day for 30 day(s) Active Immunizations Vaccine Route Administration Date Status Comme nts Influenza Unknown 07/13/2021 Administered Social History Tobacco Use: Social History Observation Description Date Details (start date - stop date) Never Smoker NA - NA Tobacco Use/Smoking Question Answer Notes Patient is [...] Never (0 point) Points 1 Interpretation Negative Section Notes: Nonsmoker; no sig alcohol Problems Problem Type SNOMED Code ICD Code Onset Dates Problem Status W/U Status Risk Notes Problem 366327935 Encounter for screening for malignant neoplasm of colon (Z12.11) Active confirmed Problem [id number] Preprocedural examination (Z01.818) Active confirmed Problem Diverticulosis of colon (828099491) Diverticulosis of colon (K57.30) Active confirmed Plan Of Treatment Future Test Test Name Order Date COLONOSCOPY 12/28/2021 Insurance Providers Payer Name Payer Address Payer Phone Subscriber Number Group Number Insured Name Patient Relationship to Insured Coverage Start Date Coverage End Date [facility] [address] [place] [address] [id number] EMILY ALEXANDRE Self - patient is the insured Medical (General) History Medical History History ICD Code High cholesterol Mild anxiety/depression Negative colonoscopy in 2009 Denies [place],DM,CVA,Lung disease,renal dise ase Surgical History Surgery Date(Month/Year) CCY 2005
--- OUTSIDE RECORDS SUMMARY | 2024-12-29 08:39 | XMS_ITS ---
Author Organization [facility] Address [address] [place] [address] Care Team Providers Care Furnace Stock Inspector Name Role Phone LISETTE MURPHY, RYANN Primary Care Provider Lindy Hong Unavailable [phone] Allergies Allergen (clinical drug ingredient) Drug/Non Drug Allergy documented on EMR Reaction Allergy Type Onset Date Status Penicillin Skin Rash/Itching Drug Allergy Active Substance with sulfonamide structure and antibacterial mechanism of action (substance) Sulfa Antibiotics Skin Rash/Itching Drug Allergy Active Results Component Value Reference Range Notes Urinalysis Reviewed date:02/07/2024 09:43:52 AM Interpretation: Performing Lab: Notes/Report: PH 6.0 PROTEIN NEG GLUCOSE NEG BLOOD NEG [id number] IGP No Culture 30 Plus Reviewed date:02/12/2024 04:14:18 PM Interpretation: Performing Lab:[facility] [place], [facility] [address], [address], [place], Phone - [phone], Director - [facility] Notes/Report: Clinical Information:[id number] Dates / Results....01/12/21 NIL, NEGHPV No. of containers..01 ThinPrep Vial DIAGNOSIS: NEGATIVE FOR INTRAEPITHELIAL LESION OR MALIGNANCY. CELLULAR CHANGES ASSOCIATED WITH ATROPHY ARE PRESENT. Specimen adequacy: Satisfactory for evaluation. Endocervical component may not be distinguished in cases of atrophy. Clinician provided ICD10: Z0 1.419 Performed by: Ivy self, Sports Writer (ASCP) . . Note: The Pap smear [...] [address], [address], [place], Phone - [phone], Director - [facility] Notes/Report: Clinical Information:[id number] Dates / Results....01/12/21 NIL, NEGHPV No. of containers..01 ThinPrep Vial REASON FOR VISIT Annual ASSISTANT MAINTENANCE MANAGER Physical, Annual ASSISTANT MAINTENANCE MANAGER Physical 60-85+ Medications Medication SIG (Take, Route, [...] Status Risk Notes Problem Postmenopausal atrophic vaginitis (53357692) Postmenopausal atrophic vaginitis (N95.2) Active confirmed Vital Signs Temperature 97.7 degrees Fahrenheit 02/07/20 24 Blood pressure systolic 130 mm Hg 02/07/20 24 Blood pressure diastolic 80 mm Hg 024 Height 68 in 02/07/2024 Weight 185 lbs 02/07/2024 BMI 28.13 kg/m2 02/07/2024 Encounters Encounter Location Date Provider Diagnosis [facility] [address] [place] [address] 02/07/2024 Lindy Perea Encounter for gynecological examination [...] Provider Name:Lindy trevino, 02/09/2025 09:00:00 AM, [address], [address], [place], [address], Progress Notes * EMILY HOODDOB:1960 (63 yo F)Acc No.[id number]:02/07/2024 PROGRESS NOTES Patient:?EMILY HOOD Appointment Provider:?Lindy trevino M.D. :1960???Age:63 Y???Sex:Female D ate:02/07/2024 Address:[address] [place] [address], [id number] Pcp:RYANN KNOX MD Subjective: * Chief Complaints: * ??? Annual ASSISTANT MAINTENANCE MANAGER PhysicalAnnua l ASSISTANT MAINTENANCE MANAGER Physical 60-85+ * HPI: ???New/Follow-up Patient Consult:? [...] adequate calcium via diet and supplementation ?Significant ASSISTANT MAINTENANCE MANAGER problems:?no significant practical ministries professor symptoms or problems * ROS:?general:?no?chest pain.?no?palpitations.?no?headache.?no?cough.?no?shortness of breath.?no?fever.?no?unexplained weight loss.?no?nausea/vomiting.?no?change in bowel movements.?no blood in stool.?no?genitourinary complaints.?no?skin complaints.? * Medical History:? 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 14631 Preventive Care Est Pt. Age 65 and over. * Procedure Codes:? * Sign off status: Completed true * Appointment Provider:?Lindy Perea M.D. Date:?02/07/2024 Generated for Sahil herrera/Dominique/eTransmitting on:?12/29/2024 08:39 AM EDT History and Physical Notes * HPI (History [...] ate calcium via diet and supplementation Significant ASSISTANT MAINTENANCE MANAGER problems:: n o significant practical ministries professor symptoms or problems Examination Category Sub-Category Detail Notes Category Not es General Exam CONSTITUTIONAL: General Appearan ce:: alert, in no acute distress, normal, well nourished NECK/THYROID: Inspection/Palpation:: normal Thyroid:: normal size and shape RESPIRATORY: Auscultation: clear to auscultation bilaterally, Respiratory [...]
--- OUTSIDE RECORDS SUMMARY | 2024-12-29 08:39 | XMS_ITS | Patient Health Record ---
Author Organization [facility] Address [address] [place] [address] Care Team Providers Care Greeting Card Writer Name Role Phone LISETTE MURPHY, RYANN Primary Care Provider Lindy Hong Unavailable [phone] Allergies Allergen (clinical drug ingredient) Drug/Non Drug Allergy documented on EMR Reaction Allergy Type Onset Date Status Penicillin Skin Rash/Itching Drug Allergy Active Substance with sulfonamide structure and antibacterial mechanism of action (substance) Sulfa Antibiotics Skin Rash/Itching Drug Allergy Active Results Component Value Reference Range Notes Urinalysis Reviewed date:02/07/2024 09:43:52 AM Interpretation: Performing Lab: Notes/Report: PH 6.0 PROTEIN NEG GLUCOSE NEG BLOOD NEG [id number] IGP No Culture 30 Plus Reviewed date:02/12/2024 04:14:18 PM Interpretation: Performing Lab:[facility] [place], [address], [address], [place], Phone - [phone], Director - [facility] Notes/Report: Clinical Information:[id number] Dates / Results....01/12/21 NIL, NEGHPV No. of containers..01 ThinPrep Vial DIAGNOSIS: NEGATIVE FOR INTRAEPITHELIAL LESION OR MALIGNANCY. CELLULAR CHANGES ASSOCIATED WITH ATROPHY ARE PRESENT. Specimen adequacy: Satisfactory for evaluation. Endocervical component may not be distinguished in cases of atrophy. Clinician provided ICD10: Z0 1.419 Performed by: Ivy self, Forge Hand (ASCP) . . Note: The Pap smear [...] Performing Lab:[facility], [address], [address], [place], Phone - [phone], Director - [facility] Notes/Report: Clinical Information:[id number] Dates / Results....01/12/21 NIL, NEGHPV No. of [...] Status Risk Notes Problem Postmenopausal atrophic vaginitis (51955915) Postmenopausal atrophic vaginitis (N95.2) Active confirmed Vital Signs Temperature 97.7 degrees Fahrenheit 02/07/2024 Blood pressure diastolic 80 mm Hg 02/07/2024 Height 68 in 02/07/2024 Blood pressure systolic 130 mm Hg 02/07/2024 Weight 185 lbs 02/07/2024 BMI 28.13 kg/m2 02/07/2024 Encounters Encounter Location Date Provider Diagnosis [facility] [address] [place] [address] 02/07/2024 Lindy Perea Encounter for gynecological examination [...] Test Test Name Order Date MAMMOGRAM, SCREENING 02/01/2023 MAMMOGRAM, SCREENING 02/07/2024 MAMMOGRAM, SCREENING 01/25/2022 Urinalysis 01/25/2022 MM Digital Mammo Screening 02/01/2023 MM Digital Mammo Screening 01/25/2022 MM Digital Mammo Screening 02/07/2024 Next Appt Details Provider Name:Lindy trevino, 02/09/2025 09:00:00 AM, [address], [place], [address], Insurance Providers Payer Name Payer Address Payer Phone Subscriber Number Group Number Insured Name Patient Relationship to Insured Coverage Start Date Coverage End Date [employer] [address] [place] [address] [id number] ALEXANDRE Spouse - patient is the spouse of the insured Medical (General) History Surgical History Surgery Date(Month/Year) Cholecystectomy 2006 Colonoscopy Hospitalization History Reason Date(Month/Year) See Surgical Hx 2 Vaginal Deliveries
== END 2024-12-29 08:14 | disposition home or self-care (01) ==
LOC: HO.HOSX 08:13
DX: S42.002D Fracture of unspecified part of left clavicle, subsequent encounter for fracture with routine healing (principal)
CPT/HCPCS: 73000; 99212

== ENCOUNTER 2024-12-29 10:21 | Outpatient (AMB) | payer MEDICARE, BC, SELFPAY ==
[2024-12-29 10:30] VITALS: BMI 29.5
--- NOTE | 2024-12-29 10:30 | MHC.OFFVIS ---
Vital Signs 12/29/24 10:30 Height 5 ft 8 in Weight 194 lb BMI 29.5 Handedness Right Intake Visit Reasons: OV LT clavicle fx, DOI 11/09/24 Intake Note: Claudia is a 64 year old right hand dominant female who presents today for a follow up of her left clavicle fracture s/p slip and fall, DOI: 11/09/24. Patient reports she feels slight improvement however she is having continued soreness and her ROM is limited. Lifting, elevation and depression of the left shoulder, and abduction is difficult for her due to soreness. She takes ibuprofen at bedtime for mild relief. Allergies ampicillin Allergy (Unknown, Verified 12/29/24 10:32) Rash Sulfa (Sulfonamide Antibiotics) Allergy (Verified 12/29/24 10:32) Rash HPI HPI OV LT clavicle fx, DOI 11/09/24: Details: Claudia is a 64 year old right hand dominant female who presents today for a follow up of her left clavicle fracture s/p slip and fall, DOI: 11/09/24. Patient reports she feels slight improvement however she is having continued soreness and her ROM is limited. Lifting, elevation and depression of the left shoulder, and abduction is difficult for her due to soreness. She takes ibuprofen at bedtime for mild relief. [facility] Medical History (Updated 12/29/24 @ 10:32 by MARA Clark) Closed left clavicular fracture Mixed dyslipidemia Degenerative disc disease, cervical Generalized anxiety disorder Surgical History S/P trigger finger release Hx of colonoscopy History of cholecystectomy Family History Father Coronary artery disease Mother Breast cancer, Onset Age: 55 Hypothyroidism Social History Housing: House Patient Tobacco Use Status: Never used Tobacco e-Cigarette/Vaping Use: Never Used service: No Current occupational status: retired Cognitive needs: No Hearing needs: No Vision needs: Yes Review of Systems Const All systems reviewed & are unremarkable except as noted in HPI and below Physical Exam Vital Signs: BMI result Body Mass Index 29.5 Extrem Other: There is noted to be a deformity in the mid shaft left clavicle of the patient's left shoulder Patient's left shoulder otherwise normal to inspection No erythema, ecchymosis, edema noted No lacerations, abrasions, open areas No evidence of infection Patient reports no tenderness to palpation of the left clavicle or shoulder at the level of the fracture Distal sensation intact Capillary refill brisk Results Reviewed Results Reviewed: X-rays obtained in the office today and independently reviewed by me, Mateusz Ngo PA-C, demonstrate displaced fracture of the left mid shaft clavicle with minimal evidence of shortening with evidence of interval bony healing. Assessment & Plan Assessment & Plan (1) Closed left clavicular fracture: Code(s): S42.002A - Fracture of unspecified part of left clavicle, initial encounter for closed fracture Category: Medical Qualifiers: Clavicle location: unspecified part of clavicle Encounter type: initial encounter Fracture alignment: nondisplaced Qualified Code(s): S42.002A - Fracture of unspecified part of left clavicle, initial encounter for closed fracture Plan 1. Left clavicle fracture Date of injury 11/09/2024 Patient was discussed with Dr. Aguayo, who is available but did not see the patient with me in clinic, and a collaborative treatment plan was formed: At this time, no surgery is indicated for this patient's clavicle fracture Patient is educated about this and expresses understanding of this Patient is educated she should discontinue use of the sling at this time Patient was educated that range of motion of the left elbow, wrist, hand, is totally okay, but she should avoid any active range of motion away from the body with the left shoulder Patient was referred to OT for pendulums and gentle range of motion of the left shoulder Patient was amenable to this plan Patient will follow-up in 4-5 weeks with repeat x-rays for reassessment, sooner with any acute concerns Orders: Orders PT Evaluation and Treatment Today S42.002A - Fracture of unspecified part of left clavicle, initial encounter for closed fracture XR clavicle LT Today M89.8X1 - Other specified disorders of bone, shoulder Coding Level of Care Code Global (28792) Diagnoses Closed nondisplaced fracture of left clavicle, unspecified part of clavicle, initial encounter S42.002A Clavicle location: unspecified part of clavicle Encounter type: initial encounter Fracture alignment: nondisplaced
== END 2024-12-29 10:47 | disposition home or self-care (01) ==
LOC: HO.HOS 10:22
PROVIDERS: PCP Internal Medicine
DX: S42.002A Fracture of unspecified part of left clavicle, initial encounter for closed fracture (principal)
CPT/HCPCS: 99213

== ENCOUNTER → 2024-12-29 10:27 | Outpatient (BNV) | payer MEDICARE, BC, SELFPAY | PROVIDERS: Visit Provider Radiology Diagnostic Radiology | DX: S42.021D Displaced fracture of shaft of right clavicle, subsequent encounter for fracture with routine healing (principal) | CPT/HCPCS: 73000 ==

== ENCOUNTER 2025-01-26 08:07 | Outpatient (REF) | payer MEDICARE, BC, SELFPAY ==
--- NOTE | ~2025-01-26 | XR_ITS ---
EXAMINATION: XR CLAVICLE LEFT HISTORY: M89.8X1 - Other specified disorders of bone, shoulder COMPARISON: Comparison is made with the prior examination dated 12/29/2024. FINDINGS: Two views of the left clavicle are submitted. Osseous mineralization is normal. Again seen is a fracture of the midshaft of the clavicle with inferior displacement of the distal fracture fragment. There is slightly greater callus formation seen consistent with healing. There is mild degenerative change of the AC joint. The soft tissues are unremarkable. XR/XR clavicle LT IMPRESSION: Healing fracture of the midshaft of the left clavicle. Electronically signed by: Enoch Taveras MD 01/26/2025 11:58 AM EDT
--- OUTSIDE RECORDS SUMMARY | 2025-01-26 08:14 | XMS_ITS ---
Author Organization [employer] [facility] Address [address] [place] [address] Care Team Providers Care Flight Agent Name Role Phone LISETTE MURPHY, RYANN Primary Care Provider Lindy Hong Unavailable [phone] Allergies Allergen (clinical drug ingredient) Drug/Non Drug Allergy documented on EMR Reaction Allergy Type Onset Date Status Penicillin Skin Rash/Itching Drug Allergy Active Substance with sulfonamide structure and antibacterial mechanism of action (substance) Sulfa Antibiotics Skin Rash/Itching Drug Allergy Active Results Component Value Reference Range Notes Urinalysis Reviewed date:02/07/2024 09:43:52 AM Interpretation: Performing Lab: Notes/Report: PH 6.0 PROTEIN NEG GLUCOSE NEG BLOOD NEG [id number] IGP No Culture 30 Plus Reviewed date:02/12/2024 04:14:18 PM Interpretation: Performing Lab:[facility] [place], [facility] [address], [address], [place], Phone - [phone], Director - [facility] Notes/Report: Clinical Information:[id number] Dates / Results....01/12/21 NIL, NEGHPV No. of containers..01 ThinPrep Vial DIAGNOSIS: NEGATIVE FOR INTRAEPITHELIAL LESION OR MALIGNANCY. CELLULAR CHANGES ASSOCIATED WITH ATROPHY ARE PRESENT. Specimen adequacy: Satisfactory for evaluation. Endocervical component may not be distinguished in cases of atrophy. Clinician provided ICD10: Z0 1.419 Performed by: Ivy self, Supervisor Winter (ASCP) . . Note: The Pap smear [...] [address], [address], [place], Phone - [phone], Director - [facility] Notes/Report: Clinical Information:[id number] Dates / Results....01/12/21 NIL, NEGHPV No. of containers..01 ThinPrep Vial REASON FOR VISIT Annual LOCAL SALES ASSOCIATE Physical, Annual LOCAL SALES ASSOCIATE Physical 60-85+ Medications Medication SIG (Take, Route, [...] Status Risk Notes Problem Postmenopausal atrophic vaginitis (76725507) Postmenopausal atrophic vaginitis (N95.2) Active confirmed Vital Signs Temperature 97.7 degrees Fahrenheit 02/07/20 24 Blood pressure systolic 130 mm Hg 02/07/20 24 Blood pressure diastolic 80 mm Hg 024 Height 68 in 02/07/2024 Weight 185 lbs 02/07/2024 BMI 28.13 kg/m2 02/07/2024 Encounters Encounter Location Date Provider Diagnosis [facility] [address] [place] [address] 02/07/2024 Lindy Perea Encounter for gynecological examination [...] Provider Name:Lindy trevino, 02/09/2025 09:00:00 AM, [address], [address], [place], [address], Progress Notes * EMILY HOODDOB:1960 (63 yo F)Acc No.[id number]:02/07/2024 PROGRESS NOTES Patient:?EMILY HOOD Appointment Provider:?Lindy trevino M.D. :1960???Age:63 Y???Sex:Female D ate:02/07/2024 Address:[address] [place] [address], [id number] Pcp:RYANN KNOX MD Subjective: * Chief Complaints: * ??? Annual LOCAL SALES ASSOCIATE PhysicalAnnua l LOCAL SALES ASSOCIATE Physical 60-85+ * HPI: ???New/Follow-up Patient Consult:? [...] adequate calcium via diet and supplementation ?Significant LOCAL SALES ASSOCIATE problems:?no significant boot trimmer symptoms or problems * ROS:?general:?no?chest pain.?no?palpitations.?no?headache.?no?cough.?no?shortness of breath.?no?fever.?no?unexplained weight loss.?no?nausea/vomiting.?no?change in bowel movements.?no blood in stool.?no?genitourinary complaints.?no?skin complaints.? * Medical History:? 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 * OB [...] * Images: Billing Information: * Visit Code:? 85865 Preventive Care Est Pt. Age 65 and over. * Procedure Codes:? * Sign off status: Completed true * Appointment Provider:?Lindy Perea M.D. Date:?02/07/2024 Generated for Sahil herrera/Dominique/eTransmitting on:?01/26/2025 08:14 AM EDT History and Physical Notes * [...] ate calcium via diet and supplementation Significant LOCAL SALES ASSOCIATE problems:: n o significant boot trimmer symptoms or problems Examination Category Sub-Category Detail [...]
--- OUTSIDE RECORDS SUMMARY | 2025-01-26 08:14 | XMS_ITS | Patient Health Record ---
Author Organization [facility] Address [address] [place] [address] Care Team Providers Care Silo Erector Name Role Phone LISETTE MURPHY, RYANN Primary Care Provider Lindy Hong Unavailable [phone] Allergies Allergen (clinical drug ingredient) Drug/Non Drug Allergy documented on EMR Reaction Allergy Type Onset Date Status Penicillin Skin Rash/Itching Drug Allergy Active Substance with sulfonamide structure and antibacterial mechanism of action (substance) Sulfa Antibiotics Skin Rash/Itching Drug Allergy Active Results Component Value Reference Range Notes Urinalysis Reviewed date:02/07/2024 09:43:52 AM Interpretation: Performing Lab: Notes/Report: PH 6.0 PROTEIN NEG GLUCOSE NEG BLOOD NEG [id number] IGP No Culture 30 Plus Reviewed date:02/12/2024 04:14:18 PM Interpretation: Performing Lab:[facility] [place], [place] [address], [address], [place], Phone - [phone], Director - [facility] Notes/Report: Clinical Information:[id number] Dates / Results....01/12/21 NIL, NEGHPV No. of containers..01 ThinPrep Vial DIAGNOSIS: NEGATIVE FOR INTRAEPITHELIAL LESION OR MALIGNANCY. CELLULAR CHANGES ASSOCIATED WITH ATROPHY ARE PRESENT. Specimen adequacy: Satisfactory for evaluation. Endocervical component may not be distinguished in cases of atrophy. Clinician provided ICD10: Z0 1.419 Performed by: Ivy self, Leather Toggler (ASCP) . . Note: The Pap smear [...] Performing Lab:[facility], [address], [address], [place], Phone - [phone], Director - [facility] Notes/Report: Clinical Information:[id number] Dates / Results....01/12/21 NIL, NEGHPV No. of [...] Status Risk Notes Problem Postmenopausal atrophic vaginitis (83841756) Postmenopausal atrophic vaginitis (N95.2) Active confirmed Vital Signs Temperature 97.7 degrees Fahrenheit 02/07/2024 Blood pressure diastolic 80 mm Hg 02/07/2024 Height 68 in 02/07/2024 Blood pressure systolic 130 mm Hg 02/07/2024 Weight 185 lbs 02/07/2024 BMI 28.13 kg/m2 02/07/2024 Encounters Encounter Location Date Provider Diagnosis [facility] [address] [place] [address] 02/07/2024 Lindy Perea Encounter for gynecological examination [...] Provider Name:Lindy trevino, 02/09/2025 09:00:00 AM, [address], [address], [place], [address], Insurance Providers Payer Name Payer Address Payer Phone Subscriber Number Group Number Insured Name Patient Relationship to Insured Coverage Start Date Coverage End Date [employer] [place] [address] [place] [address] [id number] ALEXANDRE Spouse - patient is the spouse of the insured Medical (General) History Surgical History Surgery Date(Month/Year) Cholecystectomy 2006 Colonoscopy Hospitalization History Reason Date(Month/Year) See Surgical Hx 2 Vaginal Deliveries
--- OUTSIDE RECORDS SUMMARY | 2025-01-26 08:14 | XMS_ITS | Patient Health Record ---
Author Organization [facility] Address [address] [place] [address] Care Team Providers Care Shop Mechanic Helper Name Role Phone Gerson MURPHY, Tiffani Primary Care Provider Enoch Betancur Unavailable [phone] Allergies Allergen (clinical drug ingredient) Drug/Non Drug [...] Problem Status W/U Status Risk Notes Problem 787669756 Encounter for screening for malignant neoplasm of colon (Z12.11) Active confirmed Problem 370882579759896 Preprocedural examination (Z01.818) Active confirmed Problem Diverticulosis of colon (882700419) Diverticulosis of colon (K57.30) Active confirmed Plan Of Treatment Future Test Test Name Order Date COLONOSCOPY 12/28/2021 Insurance Providers Payer Name Payer Address Payer Phone Subscriber Number Group Number Insured Name Patient Relationship to Insured Coverage Start Date Coverage End Date [facility] [address] [place] [address] [id number] EMILY ALEXANDRE Self - patient is the insured Medical (General) History Medical History History ICD Code High cholesterol Mild anxiety/depression Negative colonoscopy in 2009 Denies [place],DM,CVA,Lung disease,renal dise ase Surgical History Surgery Date(Month/Year) CCY 2005
== END 2025-01-26 08:08 | disposition home or self-care (01) ==
LOC: HO.HOSX 08:07
DX: M89.8X1 Other specified disorders of bone, shoulder (principal); S42.002A Fracture of unspecified part of left clavicle, initial encounter for closed fracture
CPT/HCPCS: 73000; 99212

== ENCOUNTER 2025-01-26 08:57 | Outpatient (AMB) | payer MEDICARE, BC, SELFPAY ==
--- NOTE | 2025-01-26 09:02 | MHC.OFFVIS ---
Vital Signs 01/26/25 09:03 Height 5 ft 8 in Weight 194 lb BMI 29.5 Intake Visit Reasons: OV LT clavicle fx, DOI 11/09/24 w xray Intake Note: Claudia is a 64 year old right hand dominant female who presents today for a follow up of her left clavicle fracture s/p slip and fall, DOI: 11/09/24. At his last visit on 12/29/24 patient was referred to occupational therapy for pendulums and gentle range of motion of the left shoulder. Patient reports she has completed one session of PT. She also reports improvement in her ROM. Denies any pain today. Allergies ampicillin Allergy (Unknown, Verified 01/26/25 09:03) Rash Sulfa (Sulfonamide Antibiotics) Allergy (Verified 01/26/25 09:03) Rash HPI HPI OV LT clavicle fx, DOI 11/09/24 w xray: Details: Claudia is a 64 year old right hand dominant female who presents today for a follow up of her left clavicle fracture s/p slip and fall, DOI: 11/09/24. At his last visit on 12/29/24 patient was referred to occupational therapy for pendulums and gentle range of motion of the left shoulder. Patient reports she has completed one session of PT. She also reports improvement in her ROM. Denies any pain today. [facility] Medical History (Updated 12/29/24 @ 10:32 by MARA Clark) Closed left clavicular fracture Mixed dyslipidemia Degenerative disc disease, cervical Generalized anxiety disorder Surgical History S/P trigger finger release Hx of colonoscopy History of cholecystectomy Family History Father Coronary artery disease Mother Breast cancer, Onset Age: 55 Hypothyroidism Social History Housing: House Patient Tobacco Use Status: Never used Tobacco e-Cigarette/Vaping Use: Never Used service: No Current occupational status: retired Cognitive needs: No Hearing needs: No Vision needs: Yes Review of Systems Const All systems reviewed & are unremarkable except as noted in HPI and below Physical Exam Vital Signs: BMI result Body Mass Index 29.5 Extrem Other: There is noted to be a deformity in the mid shaft left clavicle of the patient's left shoulder Patient's left shoulder otherwise normal to inspection No erythema, ecchymosis, edema noted No lacerations, abrasions, open areas No evidence of infection Patient reports no tenderness to palpation of the left clavicle or shoulder at the level of the fracture Distal sensation intact Capillary refill brisk Results Reviewed Results Reviewed: X-rays obtained in the office today and independently reviewed by me, Mateusz Ngo PA-C, demonstrate displaced fracture of the left mid shaft clavicle with minimal evidence of shortening with evidence of interval bony healing. Assessment & Plan Assessment & Plan (1) Closed left clavicular fracture: Code(s): S42.002A - Fracture of unspecified part of left clavicle, initial encounter for closed fracture Category: Medical Qualifiers: Encounter type: initial encounter Clavicle location: unspecified part of clavicle Fracture alignment: nondisplaced Qualified Code(s): S42.002A - Fracture of unspecified part of left clavicle, initial encounter for closed fracture Plan 1. Left clavicle fracture Date of injury 11/09/2024 At this time, no surgery is indicated for this patient's clavicle fracture Patient is educated about this and expresses understanding of this Patient is educated she should discontinue use of the sling at this time Patient was educated that range of motion of the left elbow, wrist, hand, is totally okay, but she should avoid any active range of motion away from the body with the left shoulder Patient was referred to OT for range of motion of the left shoulder Patient was amenable to this plan Patient will follow-up in 6 weeks with repeat x-rays for reassessment, sooner with any acute concerns Orders: Orders XR clavicle LT Today M89.8X1 - Other specified disorders of bone, shoulder Coding Level of Care Code Global (58802) Diagnoses Closed nondisplaced fracture of left clavicle, unspecified part of clavicle, initial encounter S42.002A Encounter type: initial encounter Clavicle location: unspecified part of clavicle Fracture alignment: nondisplaced
[2025-01-26 09:03] VITALS: BMI 29.5
== END 2025-01-26 09:23 | disposition home or self-care (01) ==
LOC: HO.HOS 08:58
DX: S42.002A Fracture of unspecified part of left clavicle, initial encounter for closed fracture (principal)
CPT/HCPCS: 99213

== ENCOUNTER → 2025-01-26 09:00 | Outpatient (BNV) | payer MEDICARE, BC, SELFPAY | PROVIDERS: Visit Provider Radiology Diagnostic Radiology | DX: S42.025D Nondisplaced fracture of shaft of left clavicle, subsequent encounter for fracture with routine healing (principal) | CPT/HCPCS: 73000 ==

== ENCOUNTER 2025-02-18 13:00 | Outpatient (RCR) | payer MEDICARE, BC, SELFPAY ==
--- NOTE | 2025-04-14 09:36 | MHC.PT.DC ---
[facility] [place] Office [place] Office [address] Tarik Palma [address] [phone] F: [phone] F: [phone] F: [phone] F: [phone] Physical Therapy Discharge Report Diagnosis: closed left clavicle fracture. Date of Surgery: Date of Evaluation: 01/21/25 Date of Discharge: 03/05/25 Treatments to Date: 6 Cancellations to Date: No Shows to Date: Discharge Status: Improved Function Independent with HEP Discharge Summary: 02/18; Pt I with HEP. SH ROM WNL. Pt has F/U with ortho in February. Pt emilia XRay showed FX still healing and discussed to pt to avoid sleeping on sh and lifting above 90 degrees. Pt is DC with PRE's. 02/11/25: pt continues to progress well. increased tolerance to strength and stability. continue to progress and update HEP NV. 02/06/25: pt has been feeling better overall and progressing well. I with HEP. ER 4/5 on L, 4+/5 on R. we will taper to 1x/week at this point to eventual d/c to HEP. 02/04/25: pt continues to tolerate well. progressed strength. some clicking on UBE but nonpainful. 01/28; Pt sh ROM WNL. Pt c/o fatigue after A exs. Pt FX still is healing see XRay. Patient is a 64 year old R handed female who presents with s/s consistent with L closed clavicle fracture resulting from a fall on 11/08/24. She is retired and likes to stay active and babysit 2.5 year old grandchild. She has been told to only lift 5 lbs at this time. She has a follow up on Sunday of this coming week. Patient past medical history is unremarkable. Current impairments include pain, posture, ROM, strength, activity tolerance and functional mobility. Functional limitations include decreased ability to reach, lift, carry, push, pull, babysit, sleep, and perform strenuous activities. Patient is motivated with good rehab potential. Skilled PT will address impairments and functional limitations in order to achieve goals. Electronically signed by: Jaime Garcia PT Please sign and return to therapist. Thank you for your referral.
== END 2025-04-14 09:39 | disposition home or self-care (01) ==
LOC: HO.PTCHIC 13:00
PROVIDERS: PCP Internal Medicine
DX: S42.002A Fracture of unspecified part of left clavicle, initial encounter for closed fracture (principal)
CPT/HCPCS: 97110; 97161

== ENCOUNTER 2025-03-10 08:36 | Outpatient (AMB) | payer MEDICARE, BC, SELFPAY ==
--- NOTE | 2025-03-10 08:47 | A.OFFVIS_ITS ---
Intake Visit Reasons: OV LT clavicle fx, DOI 11/09/24 w xray Intake Note: Claudia is a 64 year old right hand dominant female who presents today for a follow up of her left clavicle fracture s/p slip and fall, DOI: 11/09/24. Patient reports she feels better however lifting is still difficult. She states her ROM has improved and therapy says she made good progress. Allergies ampicillin Allergy (Unknown, Verified 03/10/25 08:49) Rash Sulfa (Sulfonamide Antibiotics) Allergy (Verified 03/10/25 08:49) Rash HPI HPI OV LT clavicle fx, DOI 11/09/24 w xray: Details: Claudia is a 64 year old right hand dominant female who presents today for a follow up of her left clavicle fracture s/p slip and fall, DOI: 11/09/24. Patient reports she feels better however lifting is still difficult. She states her ROM has improved and therapy says she made good progress. No other acute complaints or concerns at this time [facility] Medical History Closed left clavicular fracture Mixed dyslipidemia Degenerative disc disease, cervical Generalized anxiety disorder Surgical History S/P trigger finger release Hx of colonoscopy History of cholecystectomy Family History Father Coronary artery disease Mother Breast cancer, Onset Age: 55 Hypothyroidism Social History Housing: House Patient Tobacco Use Status: Never used Tobacco e-Cigarette/Vaping Use: Never Used service: No Current occupational status: retired Cognitive needs: No Hearing needs: No Vision needs: Yes Review of Systems Const All systems reviewed & are unremarkable except as noted in HPI and below Physical Exam Extrem Other: There is noted to be a deformity in the mid shaft left clavicle of the patient's left shoulder Patient's left shoulder otherwise normal to inspection No erythema, ecchymosis, edema noted No lacerations, abrasions, open areas No evidence of infection Patient reports no tenderness to palpation of the left clavicle or shoulder at the level of the fracture Distal sensation intact Capillary refill brisk Results Reviewed Results Reviewed: X-rays obtained in the office today and independently reviewed by me, Mateusz Ngo PA-C, demonstrate displaced fracture of the left mid shaft clavicle with minimal evidence of shortening with evidence of interval bony healing. Assessment & Plan Assessment & Plan (1) Closed left clavicular fracture: Code(s): S42.002A - Fracture of unspecified part of left clavicle, initial encounter for closed fracture Category: Medical Qualifiers: Encounter type: initial encounter Clavicle location: unspecified part of clavicle Fracture alignment: nondisplaced Qualified Code(s): S42.002A - Fracture of unspecified part of left clavicle, initial encounter for closed fracture Plan 1. Left clavicle fracture Date of injury 11/09/2024 At this time, no surgery is indicated for this patient's clavicle fracture Patient is educated about this and expresses understanding of this Patient is educated she should discontinue use of the sling at this time Continue PT ROM and activity as tolerated Patient will follow-up as needed with any acute concerns Orders: Orders XR clavicle LT Today M89.8X1 - Other specified disorders of bone, shoulder Coding Level of Care Code Est Pt Level 3 (97567) Diagnoses Closed nondisplaced fracture of left clavicle, unspecified part of clavicle, initial encounter S42.002A Encounter type: initial encounter Clavicle location: unspecified part of clavicle Fracture alignment: nondisplaced
--- OUTSIDE RECORDS SUMMARY | 2025-03-10 08:55 | XMS_ITS | Patient Health Record ---
Author Organization [facility] Address [address] [place] [address] Care Team Providers Care Chemist Enzymes Name Role Phone Gerson MURPHY, Tiffani Primary Care Provider Enoch Betancur Unavailable [phone] Allergies Allergen (clinical drug ingredient) Drug/Non Drug [...] Problem Status W/U Status Risk Notes Problem 476199296 Encounter for screening for malignant neoplasm of colon (Z12.11) Active confirmed Problem [id number] Preprocedural examination (Z01.818) Active confirmed Problem Diverticulosis of colon (581267610) Diverticulosis of colon (K57.30) Active confirmed Plan Of Treatment Future Test Test Name Order Date COLONOSCOPY 12/28/2021 Insurance Providers Payer Name Payer Address Payer Phone Subscriber Number Group Number Insured Name Patient Relationship to Insured Coverage Start Date Coverage End Date [facility] [address] [place] [address] [id number] EMILY ALEXANDRE Self - patient is the insured Medical (General) History Medical History History ICD Code High cholesterol Mild anxiety/depression Negative colonoscopy in 2009 Denies [place],DM,CVA,Lung disease,renal dise ase Surgical History Surgery Date(Month/Year) CCY 2005
== END 2025-03-10 09:02 | disposition home or self-care (01) ==
LOC: HO.HOS 08:36
PROVIDERS: PCP Internal Medicine
DX: S42.002A Fracture of unspecified part of left clavicle, initial encounter for closed fracture (principal)
CPT/HCPCS: 99213

== ENCOUNTER 2025-03-10 08:36 | Outpatient (REF) | payer MEDICARE, BC, SELFPAY ==
--- NOTE | ~2025-03-10 | XR_ITS ---
CLINICAL HISTORY: M89.8X1 - Other specified disorders of bone, shoulder 2 view left clavicle Comparison: DX - XR CLAVICLE LT - 11/24/24 13:44 EST Findings: Callus formation of the superior inferiorly displaced left mid clavicular fracture. No erosions. No radiopaque foreign body. IMPRESSION: Healing displaced left mid clavicular fracture. This document has been electronically signed by: Muna Sandoval MD on 03/10/2025 22:43:28
== END 2025-03-10 08:37 | disposition home or self-care (01) ==
LOC: HO.HOSX 08:36
PROVIDERS: PCP Internal Medicine
DX: S42.002A Fracture of unspecified part of left clavicle, initial encounter for closed fracture (principal); M89.8X1 Other specified disorders of bone, shoulder
CPT/HCPCS: 73000; 99212

== ENCOUNTER → 2025-03-10 08:40 | Outpatient (BNV) | payer MEDICARE, BC, SELFPAY | PROVIDERS: PCP Internal Medicine; Visit Provider Student in an Organized Health Care Education/Training Program | DX: S42.022D Displaced fracture of shaft of left clavicle, subsequent encounter for fracture with routine healing (principal) | CPT/HCPCS: 73000 ==

== ENCOUNTER 2025-05-21 08:37 | Outpatient (REF) | payer MEDICARE, BC, SELFPAY ==
--- OUTSIDE RECORDS SUMMARY | 2025-05-21 09:19 | XMS_ITS | Patient Health Record ---
Author Organization [facility] Address [address] [place] [address] Care Team Providers Care Road Sign Installer Name Role Phone RYANN KNOX MD Primary Care Provider Lindy Hong Unavailable [phone] Allergies Allergen (clinical drug ingredient) Drug/Non Drug Allergy documented on EMR Reaction Allergy Type Onset Date Status Penicillin Skin Rash/Itching Drug Allergy Active Substance with sulfonamide structure and antibacterial mechanism of action (substance) Sulfa Antibiotics Skin Rash/Itching Drug Allergy Active Reason For Referral No Information Medications Medication SIG (Take, Route, Frequency, Duration) Notes Start Date End Date Status Multi-Vitamin - 1 tablet Orally Once a day; Duration: 30 day(s) With Iron Active Simvastatin 20 MG TAKE 1 TABLET BY FANY TH EVERY DAY IN THE EVENING Oral; Duration: 90 Active Sertraline HCl 100 MG 1 tablet Orally Once a day Active Social History Tobacco Use: Social History Observation Description Date Details (start date - stop date) Never Smoker NA - NA Tobacco Use/Smoking Question Answer Notes Are you a nonsmoker Sexual History Question Answer Notes Had sex in the past 12 months (vaginal, oral, or anal)? Yes with Men only Prevention strategies discussed: Other AUDIT-C (Standard) Question Answer Notes Did you have a [...] (0 point) How often did you have six o r more drinks on one occasion in the past year? Never (0 point) Points 1 Interpretation Negative Problems Problem Type SNOMED Code ICD Code Onset Dates Problem Status W/U Status Risk Notes Problem Postmenopausal atrophic vaginitis (29804737) Postmenopausal atrophic vaginitis (N95.2) Active confirmed Vital Signs Temperature 97.7 degrees Fahrenheit 02/09/2025 Blood pressure diastolic 82 mm Hg 02/09/2025 Height 68 in 02/09/2025 Blood pressure systolic 144 mm Hg 02/09/2025 Weight 190 lbs 02/09/2025 BMI 28.89 kg/m2 02/09/2025 Encounters Encounter Location Date Provider Diagnosis [employer] [address] [employer] [address] [address] 02/09/2025 Lindy Perea Encounter for gynecological examination (general) (routine) without abnormal findings Z01.419 ; Encounter for screening mammogram for malignant neoplasm of breast Z12.31 and Encounter for screening for osteoporosis Z13.820 [facility] [employer] [address] [address] 02/10/2025 Lindy Perea Encounter for screening for osteoporosis Z13.820 ; Asymptomatic menopausal state Z78.0 and Personal history of (healed) traumatic fracture Z87.81 Assessments Encounter Date Diagnosis (ICD Code) Assessment Notes Treatment Notes Treatment Clinical Notes Section Notes 02/09/2025 Encounter for gynecological examination (general) (routine) without abnormal findings (ICD-10 - Z01.419) NO PAP TEST, DUE IN 2026. 02/10/2025 Encounter for screening for osteoporosis (ICD-10 - Z13.820) 02/09/2025 Encounter for screening mammogram for malignant neoplasm of breast (ICD-10 - Z12.31) REGULAR MAMMOGRAMS AND SBE'S WERE RECOMMENDED. 02/10/2025 Asymptomatic menopausal state (ICD-10 - Z78.0) 02/09/2025 Encounter for screening for osteoporosis (ICD-10 - Z13.820) DISCUSSED NEED FOR BMD SPECIALLY DUE TO HER HX OF FRACTURE. BMD WAS ORDERED. ADEQUATE CALCIUM AND VIT D. WEIGHT BEARING EXERCISES. OSTEO PRECAUTIONS. 02/10/2025 Personal history of (healed) traumatic fracture (ICD-10 - Z87.81) Plan Of Treatment Pending Test Test Name Order Date MAMMOGRAM, SCREENING 01/25/2022 MAMMOGRAM, SCREENING 02/01/2023 MAMMOGRAM, SCREENING 02/07/2024 MAMMOGRAM, SCREENING 02/09/2025 Urinalysis 01/25/2022 BONE DENSITY 02/10/2025 BONE DENSITY 02/09/2025 MM Digital Mammo Screening 01/25/2022 MM Digital Mammo Screening 02/01/2023 MM Digital Mammo Screening 02/09/2025 MM Digital Mammo Screening 02/07/2024 Insurance Providers Payer Name Payer Address Payer Phone Subscriber Number Group Number Insured Name Patient Relationship to Insured Coverage Start Date Coverage End Date MEDICARE [address] [place] [id number] [phone] [id number] EMILY HOOD Self - patient is the insured 5 [employer] [place] [address] [place] [address] [phone] [id number] NGOC ALEXANDRE Spouse - patient is the spouse of the insured Medical (General) History Medical History History ICD Code Postmenopausal atrophic vaginitis N95.2 Surgical History Surgery Date(Month/Year) Cholecystectomy 2006 Colonoscopy Hospitalization History Reason Date(Month/Year) See Surgical Hx 2 Vaginal Deliveries
--- OUTSIDE RECORDS SUMMARY | 2025-05-21 09:19 | XMS_ITS | Patient Health Record ---
Author Organization [facility] Address [address] [place] [address] Care Team Providers Care Brick Paving Checker Name Role Phone Gerson MURPHY, Tiffani Primary Care Provider Enoch Betancur Unavailable [phone] Allergies Allergen (clinical drug ingredient) Drug/Non Drug [...] Problem Status W/U Status Risk Notes Problem [id number] Encounter for screening for malignant neoplasm of colon (Z12.11) Active confirmed Problem [id number] Preprocedural examination (Z01.818) Active confirmed Problem Diverticulosis of colon (335954633) Diverticulosis of colon (K57.30) Active confirmed Plan Of Treatment Future Test Test Name Order Date COLONOSCOPY 12/28/2021 Insurance Providers Payer Name Payer Address Payer Phone Subscriber Number Group Number Insured Name Patient Relationship to Insured Coverage Start Date Coverage End Date [facility] [address] [place] [address] [id number] EMILY ALEXANDRE Self - patient is the insured Medical (General) History Medical History History ICD Code High cholesterol Mild anxiety/depression Negative colonoscopy in 2009 Denies MS,DM,CVA,Lung disease,renal dise ase Surgical History Surgery Date(Month/Year) CCY 2005
[2025-05-21 11:08] LABS: Alanine Aminotransferase 28 U/L (0-31); Aspartate Amino Transferase 28 U/L (5-31); Cholesterol 242 mg/dL (<200); HDL Cholesterol 56 mg/dL (>40); Triglycerides 222 mg/dL (<150)
== END 2025-05-21 08:38 | disposition home or self-care (01) ==
LOC: HO.HMGCLDS 08:37
PROVIDERS: PCP Internal Medicine; Visit Provider Internal Medicine
DX: E78.2 Mixed hyperlipidemia (principal); Z13.1 Encounter for screening for diabetes mellitus; Z78.0 Asymptomatic menopausal state
CPT/HCPCS: 36415; 80061; 82306; 82947; 84450; 84460

== ENCOUNTER 2025-05-27 11:34 | Outpatient (AMB) | payer MEDICARE, BC, SELFPAY ==
--- NOTE | 2025-05-27 11:40 | MHC.PC.OV ---
Vital Signs 05/27/25 11:41 Height 5 ft 8 in Weight 184 lb BMI 28.0 BP 132/88 Blood Pressure Location Lt brachial Position Sitting Respiration 16 Pulse 63 Pulse Source Pulse Oximeter Temp 98.1 F Temp Source Oral Pulse Oximetry (%) 99 Oxygen Delivery Method Room Air Intake Visit Reasons: f/u anxiety d/o and labs Intake Note: Pt is here today for her f/u anxiety and lab results Allergies ampicillin Allergy (Unknown, Verified 06/01/25 00:28) Rash Sulfa (Sulfonamide Antibiotics) Allergy (Verified 06/01/25 00:28) Rash Medication List - Last Reconciled 06/01/25 by Tiffani Nieto MD multivitamin 1 tab PO DAILY rosuvastatin 5 mg PO DAILY sertraline 100 mg PO DAILY Tobacco use date assessed: 05/27/25 Fall risk assessment: 1 Fall in past year Last assessed Fall Risk: 05/27/25 Dental Screening Dental Screen Date: 05/27/25 Did you have a dental visit in the last 12 months?: Yes Did you have a dental problem in the last 6 months where you did not have access to dental care?: Yes Was dental information given to patient?: Patient has dentist HPI f/u anxiety d/o and labs HPI Details - The patient is a 64-year-old female with hyperlipidemia and osteopenia, here today for follow-up. - Hyperlipidemia: The patient is on rosuvastatin 5 mg daily and is managing her diet to reduce cholesterol intake, consuming 1% milk and avoiding sugary cereals. - She snacks on nuts and dried fruits and consumes Dominican yogurt daily to avoid hidden sugars. - Exercise intensity is advised to increase, but her activity is limited due to a previous clavicle fracture. - Osteopenia: Diagnosed with osteopenia, particularly in the hip with a T-score of -2.3, the patient is advised to take vitamin D3 supplements, 2000 units daily. - She has not been taking vitamin D supplements previously and is encouraged to engage in weight-bearing exercises. - Clavicle fracture: The patient sustained a clavicle fracture in October after a fall on ice, limiting her exercise ability. - She has completed physical therapy and is now able to lift five-pound weights and use resistance bands. [facility] Medical History (Updated 05/27/25 @ 12:12 by Tiffani Nieto MD) Osteopenia of multiple sites Closed left clavicular fracture Mixed dyslipidemia Degenerative disc disease, cervical Generalized anxiety disorder Surgical History S/P trigger finger release Hx of colonoscopy History of cholecystectomy Family History Father Coronary artery disease Mother Breast cancer, Onset Age: 55 Hypothyroidism Social History Housing: House Patient Tobacco Use Status: Never used Tobacco e-Cigarette/Vaping Use: Never Used service: No Current occupational status: retired Cognitive needs: No Hearing needs: No Vision needs: Yes Questionnaire PHQ-9 Over the last 2 weeks, how often have you been bothered by any of the following problems? 1. Little interest or pleasure in doing things: not at all 2. Feeling down, depressed, or hopeless: not at all 3. Trouble falling or staying asleep, or sleeping too much: not at all 4. Feeling tired or having little energy: not at all 5. Poor appetite or overeating: not at all 6. Feeling bad about yourself - or that you are a failure or have let yourself or your family down: not at all 7. Trouble concentrating on things, such as reading the newspaper or watching television: not at all 8. Moving or speaking so slowly that other people could have noticed. Or the opposite - being so fidgety or restless that you have been moving around a lot more than usual: not at all 9. Thoughts that you would be better off or of hurting yourself in some way: not at all Total score: 0 Depression Screening Interpretation: Negative Depression Screening Done: Yes 85337 - PHQ-9 Billing: Yes Source: Developed by Drs. Enoch Duff, Alena Leonardo, Ar Kilgore and colleagues, with an educational lukas from [employer]. Thrive Questionnaire Date Thrive assessed: 05/22/25 I am a: Patient What is your living situation today?: I have a steady place to live Within the past 12 months, did the food you bought not last and you didn't have the money to get more?: Never true Within the past 12 months, did you worry whether your food would run out before you got money to buy more?: Never true Do you have trouble paying for medicines?: No Do you have trouble getting transportation to medical appointments?: No Do you have trouble paying your heating and electricity bill?: No Do you have trouble taking care of your child, family member or friend?: No Do you have trouble with day-to-day activities such as bathing, preparing meals, shopping, managing finances, etc.?: No Are you currently unemployed and looking for a job?: No Are you interested in more education?: No Please select the resources that you would like help with: None Currently or been in a relationship where the following occur: No concerns reported THRIVE Score: 0 AUDIT C Alcohol Use Questionnaire (AUDIT-C) 1. How often do you have a drink containing alcohol?: Monthly or less Total Score: 1 Score Reviewed/Action Taken: Yes ARELY-7 AMB Questionnaire ARELY-7 Date ARELY - 7 assessed: 05/27/25 Feeling nervous, anxious, or on edge: 0 = Not at all Not being able to stop or control worryin = Not at all Worrying too much about different things: 0 = Not at all Trouble relaxin = Not at all Being so restless that it is hard to sit still: 0 = Not at all Becoming easily annoyed or irritable: 0 = Not at all Feeling afraid as if something awful might happen: 0 = Not at all Total ARELY-7 score (0-4 normal; 5-9 mild; 10-14 moderate; 15-21 severe): 0 Source: Developed by Drs. Enoch Duff, Alena Leonardo, Ar Kilgore and colleagues, with an educational lukas from [employer]. ARELY-7 Assessment Billing ARELY-7 Assessment Tool: ARELY-7 Assessment 11152 Review of Systems Const All systems reviewed & are unremarkable except as noted in HPI and below Physical exam (Primary Care) Vital Signs: Last Vital Signs Temp 98.1 F 05/27/25 11:41 Pulse 63 05/27/25 11:41 Resp 16 05/27/25 11:41 BP 132/88 05/27/25 11:41 Pulse Ox 99 05/27/25 11:41 Oxygen Delivery Method Room Air 05/27/25 11:41 BMI result Body Mass Index 28.0 Tobacco/Smoking Status: Tobacco use Status Tobacco use date assessed 05/27/25 05/27/25 11:46 Patient Tobacco Use Status Never used Tobacco 05/27/25 11:46 e-Cigarette/Vaping Use Never Used 05/27/25 11:46 PHQ-9: PHQ-9 Score PHQ-9: Total score 0 06/01/25 00:31 Depression Screening Interpretation: Negative Thrive Assessment: Date of Thrive Assessment Date Thrive assessed 05/22/25 05/27/25 11:46 Currently or been in a relationship where the following occur: No concerns reported Const General: no acute distress and alert Orientation/consciousness: patient oriented x3 HENMT Ears: external ears normal, TM's normal bilaterally and EAC's normal General nose exam: Normal external nose present Mouth: Normal oral and palatal mucosa present Eyes General: appearance normal, both eyes and all related structures Conjunctivae: conjunctivae normal Sclerae: sclerae normal EOM: EOMs intact bilaterally Neck Neck: Yes full ROM, Yes no lymphadenopathy and Yes supple Resp Effort & Inspection: normal respiratory effort and able to speak in complete sentences Auscultation: clear to auscultation bilaterally Cardio Rate: regular rate Rhythm: regular rhythm Heart sounds: S1 normal heart sound present and S2 normal heart sound present GI Palpation (GI): Soft to palpation, nontender and no masses Auscultation: normal bowel sounds Back/Spine/Pelvis Back: No back tenderness Skin General skin exam: no rashes or lesions noted Neuro General: patient oriented x3, gait normal, tone normal, moves all extremities and no focal motor deficits Extrem General: Yes full ROM, Yes no joint enlargement, Yes no clubbing, cyanosis or edema and Yes no calf tenderness Psych Appearance: grossly normal and well kempt Mental Status: mental status grossly normal Speech and movement: Normal speech and movement present Affect: normal affect Results Reviewed Results Reviewed: Name: Claudia Alatorre Age/Sex: 64/F : 1960 Unit#: [id number] Attend Dr: Tiffani Nieto MD Re05/21/25 Status: DEP REF Location: [facility] Disch: SPEC : [id number] TOVA: 05/21/25-900 STATUS: COMP REQ : [id number] RECD: 05/21/25-[address] [facility] [address]: Tiffani Nieto MD COMP: 05/21/25 ENTERED: 05/21/25 [facility] DR: ORDERED: Glu Fasting, AST, ALT, Lipid Panel, Vitamin D 25-OH Test Result Flag Reference FBS 83 60-99 mg/dL AST (GOT) 28 5-31 U/L ALT (GPT) 28 0-31 U/L Triglyceride 222 H <150 mg/dL Desirable Triglyceride: less than 150 mg/dL Borderline High Triglyceride 150-199 mg/dL High Triglyceride: 200-499 mg/dL Very High Triglyceride: greater than or equal to 5OO mg/dL Cholesterol 242 H <200 mg/dL Desirable Cholesterol: less than 200 mg/dL Borderline High Cholesterol: 200-239 mg/dL High Cholesterol: greater than 239 mg/dL LDL Calculated 142 H <100 mg/dL Desirable LDL: less than 100 mg/dL Near Optimal/Above Optimal LDL: 110-129 mg/dL Borderline High LDL: 130-159 mg/dL High LDL: 160-189 mg/dL Very High LDL: greater than or equal to 190 mg/dL HDL 56 >40 mg/dL Desirable HDL: greater than 40 mg/dL Note: This HDL assay may give artificially low results in patients with liver disease. Vitamin D 25-OH 38.3 >30 ng/mL Health Based Reference Values* < 20 ng/mL Deficient 20-30 ng/mL Insufficient > 30 ng/mL Sufficient Coding Level of Care Code Est Pt Level 4 (31911) Complex EM visit Add On G2211 Diagnoses Mixed dyslipidemia E78.2 Generalized anxiety disorder F41.1 Osteopenia of multiple sites M85.89 Additional Codes ARELY-7 Assessment Billing - ARELY-7 Assessment Tool: ARELY-7 Assessment 31891 ([id number]) PHQ-9 - 15099 - PHQ-9 Billing: Yes ([id number]) Assessment & Plan Assessment & Plan (1) Mixed dyslipidemia: Code(s): E78.2 - Mixed hyperlipidemia Category: Medical Plan: Reviewed recent fasting lipid profile with patient with elevated triglyceride levels and LDL cholesterol, higher than last check . Continue rosuvastatin 5 mg daily, stressed adherence to low-cholesterol diet and regular exercise, at least 30 minutes 3 to 4 times a week. Advised patient to make healthy food choices, eat more fruits, vegetables, whole grains, wild caught fish and low-fat dairy. Limit amount of meat and fried or fatty food products, as well as processed foods and fast foods. Follow-up scheduled with repeat fasting lipid panel in 4 months. (2) Generalized anxiety disorder: Code(s): F41.1 - Generalized anxiety disorder Category: Medical Plan: Stable and controlled on sertraline, refill sent (3) Osteopenia of multiple sites: Code(s): M85.89 - Other specified disorders of bone density and structure, multiple sites Category: Medical Plan: Reinforced importance of doing regular weight-bearing exercise, and continue taking multivitamins, make sure that there is adequate vitamin-D and calcium included Orders: Orders Alanine Aminotransferase 09/25/25 E78.2 - Mixed hyperlipidemia, F41.1 - Generalized anxiety disorder, M85.89 - Other specified disorders of bone density and structure, multiple sites Aspartate Amino Transferase 09/25/25 E78.2 - Mixed hyperlipidemia, F41.1 - Generalized anxiety disorder, M85.89 - Other specified disorders of bone density and structure, multiple sites Vitamin D 25-OH Total 09/25/25 E78.2 - Mixed hyperlipidemia, F41.1 - Generalized anxiety disorder, M85.89 - Other specified disorders of bone density and structure, multiple sites Lipid Panel 09/25/25 E78.2 - Mixed hyperlipidemia, F41.1 - Generalized anxiety disorder, M85.89 - Other specified disorders of bone density and structure, multiple sites Medications: Refilled sertraline 100 mg PO DAILY 90 tabs 4RF
[2025-05-27 11:41] VITALS: BP 132/88; PULSE 63; RESP 16; TEMP 36.7; O2SAT 99; BMI 28.0
== END 2025-05-27 12:38 | disposition home or self-care (01) ==
LOC: HO.HMCC 11:35
PROVIDERS: PCP Internal Medicine; Visit Provider Internal Medicine
DX: E78.2 Mixed hyperlipidemia (principal); F41.1 Generalized anxiety disorder; M85.89 Other specified disorders of bone density and structure, multiple sites

== ENCOUNTER → 2025-05-27 11:34 | Outpatient (BNVA) | payer MEDICARE, BC, SELFPAY | PROVIDERS: PCP Internal Medicine; Visit Provider Internal Medicine | DX: E78.2 Mixed hyperlipidemia (principal); F41.1 Generalized anxiety disorder; M85.89 Other specified disorders of bone density and structure, multiple sites | CPT/HCPCS: 96127; 99212 ==